=== PATIENT | male | born 1945 | race Hispanic/Latino ===

== ENCOUNTER 2019-04-27 07:15 | Inpatient (IN) | payer MEDICARE, OTHER ==
[2019-04-27] MEDS ORDERED: ZOFRAN ONE (07:36)
[2019-04-27] MEDS ORDERED: ASPIRIN PO ONE (07:38)
[2019-04-27] MEDS ORDERED: ATIVAN IV ONE (07:50)
[2019-04-27] MEDS ORDERED: BABY ASPIRIN PO ONE (08:07)
[2019-04-27] MEDS ORDERED: ZOFRAN IV ONE (08:07)
[2019-04-27] MEDS ORDERED: BABY ASPIRIN ONE (08:08)
--- NOTE | 2019-04-27 08:23 | XRay Report ---
AP CHEST: HISTORY: chest pain AP view of the chest demonstrates a normal mediastinal and cardiac contour with clear lungs and normal bony and soft tissue structures. Right shoulder arthroplasty changes are noted. IMPRESSION: Unremarkable AP chest.
[2019-04-27 08:42] LABS: INR 1.17 (0.87-1.13)
[2019-04-27 08:43] LABS: Amphetamine Screen,Urine PRESUMPTIVE NEGATIVE; Benzodiazepines Screen,Urine PRESUMPTIVE NEGATIVE; Cannabinoid Screen,Urine PRESUMPTIVE NEGATIVE; Cocaine Screen,Urine PRESUMPTIVE NEGATIVE; Methadone Screen,Urine PRESUMPTIVE NEGATIVE; Opiate Screen,Urine PRESUMPTIVE NEGATIVE
[2019-04-27 08:43] LABS: Partial Thromboplastin Time 24.1 Sec. (24.2-36.6)
[2019-04-27 08:49] LABS: Basophils # (Auto) 0.1 K/mm3 (0.0-0.1); Eosinophils # (Auto) 0.1 K/mm3 (0.0-0.4); Eosinophils % (Auto) 0.9 % (0.0-4.3); Hemoglobin 13.3 gm/dl (11.8-15.2); Lymphocytes # (Auto) 0.9 K/mm3 (1.2-5.4); Lymphocytes % (Auto) 14.8 % (13.4-35.0); Mean Corpuscular HGB Conc 35 % (32-34); Mean Corpuscular Volume 102 fl (84-94); Monocytes # (Auto) 0.5 K/mm3 (0.0-0.8); Monocytes % (Auto) 8.9 % (0.0-7.3); Platelet Count 110 K/mm3 (140-440); Red Blood Count 3.74 M/mm3 (3.65-5.03)
[2019-04-27 08:52] LABS: Creatine Kinase MB 8.3 ng/mL (0.0-4.0)
[2019-04-27 08:55] LABS: Alanine Aminotransferase 13 units/L (7-56); Albumin 3.7 g/dL (3.9-5); BUN/Creatinine Ratio 10; Bilirubin,Direct 0.3 mg/dL (0-0.2); Blood Urea Nitrogen 8 mg/dL (9-20); Hemolysis Index 8
[2019-04-27] MEDS ORDERED: TYLENOL PO PRN (09:08)
[2019-04-27] MEDS ORDERED: ATIVAN IV PRN (09:08)
[2019-04-27] MEDS ORDERED: ZOFRAN IV PRN (09:08)
[2019-04-27] MEDS ORDERED: SODIUM CHLORIDE FLUSH SYRINGE 10 ML IV PRN (09:08)
--- NOTE | 2019-04-27 09:21 | History and Physical Report ---
History of Present Illness Date of examination: 04/27/19 Chief complaint: Chest pain History of present illness: Mr. Garrett ibarra, is a 73-year-old male with history of hypertension and a lcohol abuse, was brought in by EMS with complaints of chest pain. Patient is resting, easily aroused but poor historian and mildly lethargic. He states he has been drinking since yesterday afternoon and throughout the night, and this morning started having left-sided chest pain. He is unable to describe the nature of the chest pain in spite of direct questions. He states that pain is localized, he denies any associated symptoms including nausea or sweating palpitations or dizziness or loss of consciousness. He is in mild withdrawal with mild tremors of his outstretched hands and patient is being admitted for further management and evaluation of his chest pain and possible potential alco hol withdrawal Past History Past Medical History: hypertension Past Surgical History: No surgical history Social history: , lives with family, smoking, alcohol abuse Family history: hypertension (father) Medications and Allergies Allergies Allergy/AdvReac Type Severity Reaction Status Date / Time No Known Allergies Allergy Unverified 12/03/13 04:03 Home Medications Medication Instructions Recorded Confirmed Last Taken Type No Known Home Medications [No 12/03/13 12/03/13 Unknown History Reported Home Medications] Active Meds: Active Medications Acetaminophen (Tylenol) 650 mg PO Q4H PRN PRN Reason: Pain MILD(1-3)/Fever >100.5/MAYES Heparin Sodium (Porcine) (Heparin) 5,000 unit SUB-Q Q8HR JESS Magnesium Sulfate 1 gm/ Sodium (Chloride) 52 mls @ 52 mls/hr IV ONCE ONE Stop: 04/27/19 10:01 Thiamine HCl 100 mg/ Folic Acid 1 mg/ Multivitamins/Minerals 10 ml/ Sodium Chloride 1,011.2 mls @ 250 mls/hr IV ONCE ONE Stop: 04/27/19 13:06 Sodium Chloride (Nacl 0.9% 1000 Ml) 1,000 mls @ 100 mls/hr IV DIRECT JESS Lorazepam (Ativan) 1 mg IV Q1H PRN PRN Reason: CIWA-Ar 8-15 Ondansetron HCl (Zofran) 4 mg IV Q8H PRN PRN Reason: Nausea And Vomiting Pantoprazole Sodium (Protonix) 40 mg PO DAILY JESS Potassium Chloride (K-Dur) 40 meq PO ONCE ONE Stop: 04/27/19 09:02 Sodium Chloride (Sodium Chloride Flush Syringe 10 Ml) 10 ml IV BID JESS Sodium Chloride (Sodium Chloride Flush Syringe 10 Ml) 10 ml IV PRN PRN PRN Reason: LINE FLUSH Review of Systems Constitutional: lethargy, no weight loss, no fatigue, no chronic pain Ears, nose, mouth and throat: no ear pain, no nasal congestion, no sore throat, no headache, no vertigo Cardiovascular: chest pain (as stated above in the history of present illness), high blood pressure, no palpitations, no syncope, no lightheadedness, no shortness of breath Respiratory: no cough, no shortness of breath, no wheezing Gastrointestinal: no abdominal pain, no nausea, no diarrhea, no constipation, no melena Genitourinary Male: no dysuria, no hematuria, no flank pain, no urinary frequency, no urinary hesitancy Rectal: no pain Musculoskeletal: no neck pain Integumentary: no rash Neurological: no head injury, no seizures Psychiatric: no anxiety, no depression Endocrine: no excessive thirst, no polydipsia, no polyuria Exam - Constitutional Vitals: Temp Pulse Resp BP Pulse Ox 98.4 F 109 H 20 125/71 99 04/27/19 07:57 04/27/19 07:57 04/27/19 07:57 04/27/19 07:57 04/27/19 07:57 General appearance: Present: no acute distress - EENT Eyes: Present: PERRL, EOM intact ENT: hearing intact, clear oral mucosa - Neck Neck: Present: supple, normal ROM. Absent: masses or JVD - Respiratory Respiratory effort: normal Respiratory: bilateral: CTA - Cardiovascular Rhythm: regular Heart Sounds: Present: S1 & S2 - Extremities Extremities: No edema - Abdominal General gastrointestinal: Present: soft, non-tender. Absent: hepatomegaly, splenomegaly Male genitourinary: Present: deferred - Rectal Rectal Exam: deferred - Integumentary Integumentary: Present: clear - Musculoskeletal Musculoskeletal: strength equal bilaterally - Psychiatric Psychiatric: appropriate mood/affect - Neurologic Neurologic: CNII-XII intact, no focal deficits Results - Labs CBC & Chem 7: 04/27/19 08:15 04/27/19 08:15 Labs: Abnormal lab results 04/27/19 04/27/19 04/27/19 Range/Units 08:15 08:15 08:15 MCV 102 H (84-94) fl MCH 36 H (28-32) pg MCHC 35 H (32-34) % RDW 13.0 L (13.2-15.2) % Plt Count 110 L (140-440) K/mm3 [place] % (Auto) 8.9 H (0.0-7.3) % Lymph # 0.9 L (1.2-5.4) K/mm3 Seg Neutrophils % 74.4 H (40.0-70.0) % PT 15.6 H (12.2-14.9) Sec. INR 1.17 H (0.87-1.13) APTT 24.1 L (24.2-36.6) Sec. Potassium 3.3 L (3.6-5.0) mmol/L Carbon Dioxide 20 L (22-30) mmol/L BUN 8 L (9-20) mg/dL Glucose 126 H (75-100) mg/dL Calcium 8.0 L (8.4-10.2) mg/dL Magnesium 1.10 L (1.7-2.3) mg/dL Direct Bilirubin 0.3 H (0-0.2) mg/dL CK-MB (CK-2) 8.3 H (0.0-4.0) ng/mL CK-MB (CK-2) Rel Index 5.8 H (0-4) Total Protein 6.1 L (6.3-8.2) g/dL Albumin 3.7 L (3.9-5) g/dL Assessment and Plan - Patient Problems (1) Chest pain at rest Current Visit: Yes Status: Acute Plan to address problem: Appears atypical, EKG reviewed, sinus tachycardia with right bundle branch block and left anterior fascicular block Troponin was set in the normal range, serial troponin levels ordered Cardiology consult Telemetry Empiric PPI (2) HTN (hypertension) Current Visit: Yes Status: Acute Qualifiers: Hypertension type: essential hypertension Qualified Code(s): I10 - Essential (primary) hypertension Plan to address problem: Patient is normotensive at this time There is no listing of medications Will monitor for now Hydralazine when necessary (3) Hypokalemia Current Visit: Yes Status: Acute Plan to address problem: Potassium supplements ordered Monitor electrolytes (4) Hypomagnesemia Current Visit: Yes Status: Acute Plan to address problem: IV magnesium supplements ordered Recheck medication level in a.m. (5) Alcohol abuse Current Visit: Yes Status: Chronic Plan to address problem: We will start the patient on CIWA protocol with IV lorazepam We will also start the patient on banana bag once daily IV fluids with normal saline (6) Thrombocytopenia Current Visit: Yes Status: Acute Plan to address problem: Most likely EtOH induced bone marrow suppression We will monitor We will continue heparin DVT prophylaxis but will stop if it's dropping further (7) Macrocytosis without anemia Current Visit: Yes Status: Chronic Plan to address problem: Most likely secondary to EtOH abuse That is no overt bleed Will start on Thiamine and folic acid supplements
[2019-04-27] MEDS ORDERED: K-DUR PO ONE ×2 (11:00→16:00)
[2019-04-27] MEDS ORDERED: VITAMIN B-1 100 MG, FOLVITE 1 MG, INFUVITE 10 ML in NACL 0.9% 1000 ML 1,000 ML IV ONE (11:04)
[2019-04-27] MEDS: SODIUM CHLORIDE FLUSH SYRINGE 10 ML IV SCH ×2 (12:00→21:56)
[2019-04-27] MEDS ORDERED: MAGNESIUM SULFATE 1 GM in NACL 0.9% 50 ML IV ONE (12:02)
--- NOTE | 2019-04-27 12:21 | Emergency Department Report ---
ED Chest Pain HPI - General Chief Complaint: Chest Pain Stated Complaint: CHEST PAIN Time Seen by Provider: 04/27/19 07:30 Source: EMS Mode of arrival: Stretcher Limitations: No Limitations - History of Present Illness Initial Comments: 73-year-old male presents for evaluation of chest pain. I think it is either substernal or left-sided. I don't think it is radiating. I think the patient is denying shortness of breath. I am describing the substantial difficulties in obtaining specific history from this gentleman. He is quite tremulous/shaky and possibly encephalopathic. He does drink alcohol. He states that he was evaluated at [facility] I believe one week ago for chest pain. I cannot tell from his account whether he was discharged or admitted. I am presuming that he was discharged. At the time of my encounter unable to obtain much specific data about this patient's history of present illness. He sustains to be stating that his chest pain became worse last night but that if he has had it for over a week. MD Complaint: chest pain -: week(s) Onset: during rest Pain Location: substernal, left chest Pain Radiation: none Quality: other (patient will not describe) Consistency: constant Improves With: nothing Worsens With: nothing re: denies: vomting, diaphoresis, dyspnea Other Symptoms: cough Treatments Prior to Arrival: none (arrived via EMS. Was not given nitroglycerin) - Related Data Home Medications Medication Instructions Recorded Confirmed Last Taken No Known Home Medications [No 12/03/13 12/03/13 Unknown Reported Home Medications] Allergies Allergy/AdvReac Type Severity Reaction Status Date / Time No Known Allergies Allergy Unverified 12/03/13 04:03 Heart Score - HEART Score History: Moderately suspicious EKG: Non-specific Age: > 65 Risk factors: > 3 risk factors or hx of atherosclerotic disease Troponin: 1-3x normal limit HEART Score: 7 - Critical Actions Critical Actions: >7 pts:50-65% risk of adverse cardiac event. Early invasive measures ED Review of Systems ROS: Stated complaint: CHEST PAIN Other details as noted in HPI Comment: Unobtainable due to pts medical conditions ED Past Medical Hx - Past Medical History Hx Hypertension: Yes Hx Arthritis: Yes Hx Psychiatric Treatment: No Additional medical history: Daily Alcohol Consumption - Surgical History Additional Surgical History: total knee replacement - Social History Smoking Status: Current Every Day Smoker Substance Use Type: Alcohol - Medications Home Medications: Home Medications Medication Instructions Recorded Confirmed Last Taken Type No Known Home Medications [No 12/03/13 12/03/13 Unknown History Reported Home Medications] ED Physical Exam - General Limitations: Altered Mental Status General appearance: alert, anxious - Head Head exam: Present: atraumatic, normocephalic - Eye Eye exam: Present: normal appearance, PERRL, EOMI. Absent: scleral icterus - ENT ENT exam: Present: mucous membranes moist - Neck Neck exam: Present: normal inspection. Absent: tenderness, meningismus - Respiratory Respiratory exam: Present: normal lung sounds bilaterally. Absent: respiratory distress - Cardiovascular Cardiovascular Exam: Present: regular rate, normal rhythm. Absent: systolic murmur, diastolic murmur, rubs, gallop - GI/Abdominal GI/Abdominal exam: Present: soft, normal bowel sounds. Absent: distended, tenderness, guarding, rebound, rigid - Rectal Rectal exam: Present: deferred - Extremities Exam Extremities exam: Present: normal inspection. Absent: pedal edema, joint swelling, calf tenderness - Back Exam Back exam: Present: normal inspection - Neurological Exam Neurological exam: Present: alert, altered, CN II-XII intact (as testable), motor sensory deficit - Psychiatric Psychiatric exam: Present: agitated, anxious - Skin Skin exam: Present: warm, dry, intact, normal color. Absent: rash ED Course Vital Signs 04/27/19 04/27/19 04/27/19 07:44 07:51 07:57 Temperature 98.4 F Pulse Rate 118 H 109 H Respiratory 20 20 Rate Blood Pressure 125/71 Blood Pressure 125/71 [Left] O2 Sat by Pulse 98 97 99 Oximetry 04/27/19 04/27/19 04/27/19 08:00 08:11 08:21 Temperature Pulse Rate 100 H 92 H 92 H Respiratory 22 16 17 Rate Blood Pressure 141/70 141/70 131/72 Blood Pressure [Left] O2 Sat by Pulse 97 98 98 Oximetry 04/27/19 04/27/19 04/27/19 08:30 08:41 08:51 Temperature Pulse Rate 85 87 88 Respiratory 16 13 14 Rate Blood Pressure 137/68 137/68 131/76 Blood Pressure [Left] O2 Sat by Pulse 100 98 97 Oximetry 04/27/19 04/27/19 04/27/19 09:00 09:11 09:21 Temperature Pulse Rate 77 73 77 Respiratory 10 L 14 20 Rate Blood Pressure 132/65 132/65 132/64 Blood Pressure [Left] O2 Sat by Pulse 99 99 96 Oximetry 04/27/19 04/27/19 04/27/19 09:30 09:41 09:51 Temperature Pulse Rate 72 71 74 Respiratory 15 13 14 Rate Blood Pressure 144/62 140/62 Blood Pressure [Left] O2 Sat by Pulse 99 97 98 Oximetry 04/27/19 04/27/19 04/27/19 10:01 10:11 10:21 Temperature Pulse Rate 68 71 62 Respiratory 14 12 16 Rate Blood Pressure 131/62 131/62 130/59 Blood Pressure [Left] O2 Sat by Pulse 99 99 98 Oximetry 04/27/19 04/27/19 04/27/19 10:31 10:41 10:51 Temperature Pulse Rate 66 73 77 Respiratory 10 L 18 14 Rate Blood Pressure 134/55 134/55 126/56 Blood Pressure [Left] O2 Sat by Pulse 98 99 99 Oximetry 04/27/19 04/27/19 04/27/19 11:00 11:11 11:21 Temperature Pulse Rate 63 65 70 Respiratory 15 15 13 Rate Blood Pressure 136/56 134/55 130/58 Blood Pressure [Left] O2 Sat by Pulse 100 100 99 Oximetry 04/27/19 04/27/19 04/27/19 11:30 11:41 11:51 Temperature Pulse Rate 67 77 66 Respiratory 15 14 15 Rate Blood Pressure 135/58 126/56 127/59 Blood Pressure [Left] O2 Sat by Pulse 99 98 99 Oximetry 04/27/19 04/27/19 04/27/19 12:00 12:01 12:08 Temperature 98.4 F Pulse Rate 64 78 Respiratory 14 20 Rate Blood Pressure 134/60 134/60 Blood Pressure [Left] O2 Sat by Pulse 98 Oximetry 04/27/19 12:15 Temperature Pulse Rate 68 Respiratory 15 Rate Blood Pressure 134/60 Blood Pressure [Left] O2 Sat by Pulse 99 Oximetry - Reevaluation(s) Reevaluation #1: Patient was given Ativan. He was judged to be a bit encephalopathic likely secondary to alcohol withdrawal. He was admitted by the hospitalist further care and evaluation. I am going to get a CT of his head as well. 04/27/19 12:25 JOSE score - Jose Score Age > 65: (0) No Aspirin use within the Past 7 Days: (0) No 3 or more CAD Risk Factors: (1) Yes 2 or more Angina events in past 24 hrs: (0) No Known CAD with more than 50% Stenosis: (0) No Elevated Cardiac Markers: (0) No ST Deviation Greater than 0.5mm: (1) Yes JOSE Score: 2 ED Medical Decision Making - Lab Data Result diagrams: 04/27/19 08:15 04/27/19 08:15 Laboratory Results - last 24 hr 04/27/19 04/27/19 04/27/19 08:15 08:15 08:15 WBC 5.9 RBC 3.74 Hgb 13.3 Hct 38.0 MCV 102 H MCH 36 H MCHC 35 H RDW 13.0 L Plt Count 110 L Lymph % (Auto) 14.8 [place] % (Auto) 8.9 H Eos % (Auto) 0.9 Baso % (Auto) 1.0 Lymph # 0.9 L [place] # 0.5 Eos # 0.1 Baso # 0.1 Seg Neutrophils % 74.4 H Seg Neutrophils # 4.4 PT 15.6 H INR 1.17 H APTT 24.1 L Sodium 141 Potassium 3.3 L Chloride 103.6 Carbon Dioxide 20 L Anion Gap 21 BUN 8 L Creatinine 0.8 Estimated GFR > 60 BUN/Creatinine Ratio 10 Glucose 126 H Calcium 8.0 L Magnesium 1.10 L Total Bilirubin 1.10 Direct Bilirubin 0.3 H Indirect Bilirubin 0.8 AST 20 ALT 13 Alkaline Phosphatase 43 Ammonia Total Creatine Kinase 141 CK-MB (CK-2) 8.3 H CK-MB (CK-2) Rel Index 5.8 H Troponin T 0.018 NT-Pro-B Natriuret Pep 264.6 Total Protein 6.1 L Albumin 3.7 L Albumin/Globulin Ratio 1.5 Plasma/Serum Alcohol Blood Type Antibody Screen 04/27/19 04/27/19 04/27/19 08:15 08:15 08:15 WBC RBC Hgb Hct MCV MCH MCHC RDW Plt Count Lymph % (Auto) [place] % (Auto) Eos % (Auto) Baso % (Auto) Lymph # [place] # Eos # Baso # Seg Neutrophils % Seg Neutrophils # PT INR APTT Sodium Potassium Chloride Carbon Dioxide Anion Gap BUN Creatinine Estimated GFR BUN/Creatinine Ratio Glucose Calcium Magnesium Total Bilirubin Direct Bilirubin Indirect Bilirubin AST ALT Alkaline Phosphatase Ammonia 38.0 Total Creatine Kinase CK-MB (CK-2) CK-MB (CK-2) Rel Index Troponin T NT-Pro-B Natriuret Pep Total Protein Albumin Albumin/Globulin Ratio Plasma/Serum Alcohol < 0.01 Blood Type A POSITIVE Antibody Screen Negative - EKG Data EKG shows normal: sinus rhythm (multiple PACs/multifocal atrial tachycardia), axis (left axis/LAFB,), intervals, QRS complexes (right bundle-branch block), ST-T waves Rate: tachycardia - EKG Data Interpretation: nonspecific ST-T wave chad Critical care attestation.: If time is entered above; I have spent that time in minutes in the direct care of this critically ill patient, excluding procedure time. ED Disposition Clinical Impression: Chest pain at rest, Encephalopathy acute, Bifascicular block Alcohol withdrawal Qualifiers: Complication of substance-induced condition: with delirium Qualified Code(s): F10.231 - Alcohol dependence with withdrawal delirium Disposition: OP ADMIT IP TO THIS HOSP Is pt being admited?: Yes Does the pt Need Aspirin: Yes Time of Disposition: 12:31
--- NOTE | 2019-04-27 12:31 | Consultation ---
History of Present Illness Consult date: 04/27/19 Requesting physician: SHON PRITCHARD Consult reason: chest pain History of present illness: The pt is a 73-year-old male with a past medical history of HTN, SVT, ETOH abuse, thrombocytopenia, prostate CA, tobacco use, ? gastric ulcers per his at bedside. Pt has been seen once in our office by Dr. Plascencia. He presented with c/o chest pain for the past 2 weeks. He describes his chest pain as an intermittent substernal pain which is aggravated by ETOH intake. Pt reports several bouts of n/v over the past several days. Pt denies any SOB, palpitations, diaphoresis, dizziness or syncope. On evaluation, pt is noted to be quite tremulous/shaky and possibly encephalopathic. He does drink alcohol. Of note, pt was admitted to [facility] in 08/2017 for cp. He was noted to have SVT at that time. He underwent lexiscan MPI stress test on 09/02/2017 which showed small inferior defect with mild reversibility, EF 72%. Echo done 09/01/2017 showed normal LV size and function, RA mod dilated, mild anterior MV prolapse, trace TR. Past History Past Medical History: cancer (prostate), hypertension, other (svt) Past Surgical History: No surgical history Social history: , lives with family, smoking, alcohol abuse Family history: hypertension (father) Medications and Allergies Allergies Allergy/AdvReac Type Severity Reaction Status Date / Time No Known Allergies Allergy Unverified 12/03/13 04:03 Home Medications Medication Instructions Recorded Confirmed Last Taken Type No Known Home Medications [No 12/03/13 12/03/13 Unknown History Reported Home Medications] Active Meds: Active Medications Acetaminophen (Tylenol) 650 mg PO Q4H PRN PRN Reason: Pain MILD(1-3)/Fever >100.5/MAYES Heparin Sodium (Porcine) (Heparin) 5,000 unit SUB-Q Q8HR JESS Magnesium Sulfate 1 gm/ Sodium (Chloride) 52 mls @ 52 mls/hr IV ONCE ONE Stop: 04/27/19 13:01 Thiamine HCl 100 mg/ Folic Acid 1 mg/ Multivitamins/Minerals 10 ml/ Sodium Chloride 1,011.2 mls @ 250 mls/hr IV ONCE ONE Stop: 04/27/19 15:06 Sodium Chloride (Nacl 0.9% 1000 Ml) 1,000 mls @ 100 mls/hr IV DIRECT JESS Lorazepam (Ativan) 1 mg IV Q1H PRN PRN Reason: CIWA-Ar 8-15 Ondansetron HCl (Zofran) 4 mg IV Q8H PRN PRN Reason: Nausea And Vomiting Pantoprazole Sodium (Protonix) 40 mg PO DAILY [facility] Sodium Chloride (Sodium Chloride Flush Syringe 10 Ml) 10 ml IV BID [facility] Last Admin: 04/27/19 12:00 Dose: 10 ml Documented by: Sodium Chloride (Sodium Chloride Flush Syringe 10 Ml) 10 ml IV PRN PRN PRN Reason: LINE FLUSH Thiamine HCl (Vitamin B-1) 100 mg PO DAILY [facility] Review of Systems Constitutional: no fever, no chills, no sweats Ears, nose, mouth and throat: no ear pain, no nose pain, no sinus pressure, no sinus pain Cardiovascular: chest pain, no palpitations, no rapid/irregular heart beat, no edema, no syncope, no lightheadedness, no shortness of breath, no dyspnea on exertion, no high blood pressure, no leg edema Respiratory: no cough, no shortness of breath, no dyspnea on exertion, no con gestion, no wheezing, no pain on inspiration Gastrointestinal: nausea, vomiting, no abdominal pain, no diarrhea, no constipation, no change in bowel habits Genitourinary Male: no dysuria, no hematuria, no flank pain, no discharge, no urinary frequency, no urinary hesitancy Musculoskeletal: no neck stiffness, no neck pain, no shooting arm pain, no arm numbness/tingling, no low back pain, no shooting leg pain Integumentary: no rash, no pruritis, no redness, no sores, no wounds Neurological: no head injury, no paralysis, no weakness, no parathesias, no numbness, no tingling, no seizures, no syncope Psychiatric: no anxiety Endocrine: no cold intolerance, no heat intolerance Hematologic/Lymphatic: no easy bruising, no easy bleeding Allergic/Immunologic: no urticaria, no wheezing Physical Examination Vital Signs Pulse Ox 98 04/27/19 07:44 General appearance: no acute distress HEENT: Positive: PERRL, Normocephaly, Mucus Membranes Moist Neck: Positive: neck supple, trachea midline Cardiac: Positive: Reg Rate and Rhythm, S1/S2 Lungs: Positive: Decreased Breath Sounds Neuro: Positive: Grossly Intact Abdomen: Positive: Soft. Negative: Tender Skin: Negative: Rash, Wound Musculoskeletal: No Pain Extremities: Absent: edema Results 04/27/19 08:15 04/27/19 08:15 Cardiac Enzymes 04/27/19 Range/Units 08:15 AST 20 (5-40) units/L CK-MB (CK-2) 8.3 H (0.0-4.0) ng/mL Coagulation 04/27/19 Range/Units 08:15 PT 15.6 H (12.2-14.9) Sec. INR 1.17 H (0.87-1.13) APTT 24.1 L (24.2-36.6) Sec. CBC 04/27/19 Range/Units 08:15 WBC 5.9 (4.5-11.0) K/mm3 RBC 3.74 (3.65-5.03) M/mm3 Hgb 13.3 (11.8-15.2) gm/dl Hct 38.0 (35.5-45.6) % Plt Count 110 L (140-440) K/mm3 Lymph # 0.9 L (1.2-5.4) K/mm3 [place] # 0.5 (0.0-0.8) K/mm3 Eos # 0.1 (0.0-0.4) K/mm3 Baso # 0.1 (0.0-0.1) K/mm3 Comprehensive Metabolic Panel 04/27/19 Range/Units 08:15 Sodium 141 (137-145) mmol/L Potassium 3.3 L (3.6-5.0) mmol/L Chloride 103.6 (98-107) mmol/L Carbon Dioxide 20 L (22-30) mmol/L BUN 8 L (9-20) mg/dL Creatinine 0.8 (0.8-1.5) mg/dL Glucose 126 H (75-100) mg/dL Calcium 8.0 L (8.4-10.2) mg/dL Direct Bilirubin 0.3 H (0-0.2) mg/dL Indirect Bilirubin 0.8 mg/dL AST 20 (5-40) units/L ALT 13 (7-56) units/L Alkaline Phosphatase 43 (35-129) units/L Total Protein 6.1 L (6.3-8.2) g/dL Albumin 3.7 L (3.9-5) g/dL - Imaging and Cardiology Echo: report reviewed (09/01/2017 showed normal LVsize and function, RA mod dilated, mild anterior MV prolapse, trace TR. ) EKG: report reviewed, image reviewed EKG interpretations - Telemetry EKG Rhythm: Sinus Rhythm - EKG Sinus rhythms and dysrhythmias: sinus rhythm AV and intraventricular conduction: right bundle branch block Assessment and Plan Pt was admitted to [facility] in 08/2017 for cp. He was noted to have SVT at that time. He underwent lexiscan MPI stress test on 09/02/2017 which showed small inferior defect with mild reversibility, EF 72%. Echo done 09/01/2017 showed normal LV size and function, RA mod dilated, mild anterior MV prolapse, trace TR. Pt admitted now with c/o chest pain and suspected ETOH withdrawal. On CIWA protocol per primary. ECG with no acute ischemic changes, troponin minimally elevated x 1. F/u echo, trend Wendy and plan for lexiscan MPI stress test in AM. NPO after MN. Resume home lopressor. Replete lytes and repeat BMP and Mg in AM. Monitor on telemetry. The patient has been seen in conjunction with Dr. Butler who agrees with the assessment and plan of care. - Patient Problems (1) Chest pain Current Visit: Yes Status: Acute (2) Alcohol abuse Current Visit: Yes Status: Chronic (3) Alcohol withdrawal Current Visit: Yes Status: Suspected (4) Hypokalemia Current Visit: Yes Status: Acute (5) Hypomagnesemia Current Visit: Yes Status: Acute (6) Thrombocytopenia Current Visit: Yes Status: Chronic (7) HTN (hypertension) Current Visit: Yes Status: Chronic Qualifiers: Hypertension type: essential hypertension Qualified Code(s): I10 - Essential (primary) hypertension (8) History of supraventricular tachycardia Current Visit: Yes Status: Chronic (9) RBBB Current Visit: Yes Status: Chronic (10) History of prostate cancer Current Visit: Yes Status: Chronic
[2019-04-27] MEDS: VITAMIN B-1 PO SCH (14:12)
[2019-04-27] MEDS: PROTONIX PO SCH (14:12)
[2019-04-27] MEDS: NACL 0.9% 1000 ML 1,000 ML IV SCH (14:15)
[2019-04-27] MEDS: HEPARIN SUB-Q SCH ×2 (14:23→21:56)
--- NOTE | 2019-04-27 14:58 | Cat Scan Report ---
CT HEAD WITHOUT CONTRAST: HISTORY: Altered mental status. TECHNIQUE: Sequential CT images without contrast. FINDINGS: Images obtained show bilateral prominence of the sulci and ventricles. There are no abnormal intra- or extra-axial blood or fluid collections. There are no focal masses or evidence of mass effect. The [place] white matter differentiation appears within normal limits. Regions of periventricular decreased attenuation are consistent with microangiopathic ischemic disease. The posterior fossa structures including the fourth ventricle, cerebellum, and brainstem appear normal. IMPRESSION: Evidence of atrophy and microangiopathic ischemic disease. No acute intracranial process noted.
[2019-04-27] MEDS ORDERED: MAGNESIUM SULFATE 3 GM in NACL 0.9% 100 ML IV ONE (15:00)
[2019-04-27] MEDS: LOPRESSOR PO SCH (21:55)
[2019-04-28] MEDS: HEPARIN SUB-Q SCH ×3 (05:09→21:08)
[2019-04-28] MEDS: NACL 0.9% 1000 ML 1,000 ML IV SCH (05:10)
[2019-04-28 06:09] LABS: Basophils % (Auto) 1.1 % (0.0-1.8); Eosinophils # (Auto) 0.1 K/mm3 (0.0-0.4); Eosinophils % (Auto) 2.3 % (0.0-4.3); Hematocrit 35.5 % (35.5-45.6); Hemoglobin 12.5 gm/dl (11.8-15.2); Lymphocytes # (Auto) 0.9 K/mm3 (1.2-5.4); Mean Corpuscular HGB Conc 35 % (32-34); Mean Corpuscular Volume 102 fl (84-94); Monocytes # (Auto) 0.3 K/mm3 (0.0-0.8); Monocytes % (Auto) 7.9 % (0.0-7.3); Red Blood Count 3.46 M/mm3 (3.65-5.03)
[2019-04-28 06:21] LABS: BUN/Creatinine Ratio 7; Blood Urea Nitrogen 4 mg/dL (9-20); Calcium 7.6 mg/dL (8.4-10.2); Hemolysis Index 9
[2019-04-28 06:36] LABS: Platelet Count 92 K/mm3 (140-440)
[2019-04-28] MEDS ORDERED: LEXISCAN IV ONE ×2 (08:06→08:07)
[2019-04-28] MEDS: LOPRESSOR PO SCH ×2 (11:29→21:08)
[2019-04-28] MEDS: SODIUM CHLORIDE FLUSH SYRINGE 10 ML IV SCH ×2 (11:30→21:10)
[2019-04-28] MEDS: VITAMIN B-1 PO SCH (11:30)
[2019-04-28] MEDS: PROTONIX PO SCH (11:30)
--- NOTE | 2019-04-28 11:30 | Treadmill Report ---
NUCLEAR MYOCARDIAL PERFUSION IMAGING REPORT Myocardial perfusion imaging was performed after injecting the Myoview. One day protocol was followed with resting images, followed by post-stress images and post-stress gated images were obtained. This showed very small mild fixed defect in the inferior wall, which is more or less noted in the resting images, most likely this is artifactual. Overall, perfusion was found to be normal with no significant reversible defects. Left ventricular size was found to be normal with normal contractility and wall thickening. The ejection fraction was calculated to be 61%. Transient ischemic dilation ratio was found to be 1.0. FINAL IMPRESSION: 1. Normal perfusion images with no evidence of ischemia. 2. Normal left ventricular systolic function. 3. This was found to be prognostically low-risk study. JOB# [id number] RODERICK/OSIEL
--- NOTE | 2019-04-28 13:22 | Progress Note ---
Assessment and Plan s/p lexiscan MPI stress test this AM which was negative. Pt reports resolution of cp. pt noted to have NSVT overnight - cont lopressor and replete lytes PRN. nothing further to add from cardiac perspective at this time. will sign off. Recommend pt follow up in our office with Dr. Plascencia within 1-2 weeks of hospital discharge ([phone]). The patient has been seen in conjunction with Dr. Butler who agrees with the assessment and plan of care. - Patient Problems (1) Chest pain Current Visit: Yes Status: Resolved (2) Alcohol abuse Current Visit: Yes Status: Chronic (3) Alcohol withdrawal Current Visit: Yes Status: Suspected (4) Hypokalemia Current Visit: Yes Status: Acute (5) Hypomagnesemia Current Visit: Yes Status: Acute (6) Thrombocytopenia Current Visit: Yes Status: Chronic (7) HTN (hypertension) Current Visit: Yes Status: Chronic Qualifiers: Hypertension type: essential hypertension Qualified Code(s): I10 - Essential (primary) hypertension (8) History of supraventricular tachycardia Current Visit: Yes Status: Chronic (9) RBBB Current Visit: Yes Status: Chronic (10) History of prostate cancer Current Visit: Yes Status: Chronic Subjective Date of service: 04/28/19 Principal diagnosis: cp Interval history: pt for stress test, no current cardiac complaints. some NSVT noted on tele overnight. Objective Last Vital Signs Temp 98.3 F 04/28/19 05:31 Pulse 63 04/28/19 10:00 Resp 19 04/28/19 10:00 BP 134/68 04/28/19 08:52 Pulse Ox 98 04/28/19 10:00 - Physical Examination General: No Apparent Distress HEENT: Positive: PERRL, Normocephaly, Mucus Membranes Moist Neck: Positive: neck supple, trachea midline Cardiac: Positive: Reg Rate and Rhythm, S1/S2 Lungs: Positive: Decreased Breath Sounds Neuro: Positive: Grossly Intact Abdomen: Positive: Soft. Negative: Tender Skin: Negative: Rash, Wound Musculoskeletal: No Pain Extremities: Absent: edema - Labs and Meds CBC 04/28/19 Range/Units 04:25 WBC 4.3 L (4.5-11.0) K/mm3 RBC 3.46 L (3.65-5.03) M/mm3 Hgb 12.5 (11.8-15.2) gm/dl Hct 35.5 (35.5-45.6) % Plt Count 92 L (140-440) K/mm3 Lymph # 0.9 L (1.2-5.4) K/mm3 [place] # 0.3 (0.0-0.8) K/mm3 Eos # 0.1 (0.0-0.4) K/mm3 Baso # 0.0 (0.0-0.1) K/mm3 Comprehensive Metabolic Panel 04/28/19 Range/Units 04:25 Sodium 137 (137-145) mmol/L Potassium 3.5 L (3.6-5.0) mmol/L Chloride 101.0 (98-107) mmol/L Carbon Dioxide 23 (22-30) mmol/L BUN 4 L (9-20) mg/dL Creatinine 0.6 L (0.8-1.5) mg/dL Glucose 100 (75-100) mg/dL Calcium 7.6 L (8.4-10.2) mg/dL - Imaging and Cardiology EKG: report reviewed, image reviewed Echo: report reviewed (09/01/2017 showed normal LVsize and function, RA mod dilated, mild anterior MV prolapse, trace TR. ) - Telemetry EKG Rhythm: Sinus Rhythm - EKG Sinus rhythms and dysrhythmias: sinus rhythm AV and intraventricular conduction: right bundle branch block
--- NOTE | 2019-04-28 14:00 | Progress Note ---
Assessment and Plan (1) Chest pain at rest Current Visit: Yes Status: Acute Plan to address problem: Appears atypical, EKG reviewed, sinus tachycardia with right bundle branch block and left anterior fascicular block Lexiscan and Troponin normal.No ischemia (2) HTN (hypertension) Current Visit: Yes Status: Acute Qualifiers: Hypertension type: essential hypertension Qualified Code(s): I10 - Essential (primary) hypertension Plan to address problem: Patient is normotensive at this time There is no listing of medications Will monitor for now Hydralazine when necessary (3) Hypokalemia Current Visit: Yes Status: Acute Plan to address problem: Potassium supplements ordered Monitor electrolytes Supplemented (4) Hypomagnesemia Current Visit: Yes Status: Acute Plan to address problem: IV magnesium supplements ordered Recheck medication level in a.m. Supplemented again (5) Alcohol abuse Current Visit: Yes Status: Chronic Plan to address problem: We will start the patient on CIWA protocol with IV lorazepam We will also start the patient on banana bag once daily IV fluids with normal saline Going into DT's Cont CIWA protocol (6) Thrombocytopenia Current Visit: Yes Status: Acute Plan to address problem: Most likely EtOH induced bone marrow suppression We will monitor We will continue heparin DVT prophylaxis but will stop if it's dropping further (7) Macrocytosis without anemia Current Visit: Yes Status: Chronic Plan to address problem: Most likely secondary to EtOH abuse That is no overt bleed Will start on Thiamine and folic acid supplements (8)Hypocalcemia Supplemented Subjective Date of service: 04/28/19 Principal diagnosis: cp Interval history: Chest pain improved.Tremulouis and agitated.Trying to get out of the hospital.No fever or chills. Objective - Constitutional Vitals: Vital Signs - 12hr 04/28/19 04/28/19 04/28/19 02:00 05:31 08:15 Temperature 98.3 F Pulse Rate 64 68 Pulse Rate [ Apical] Pulse Rate [ Left Radial] Pulse Rate [ Right Radial] Respiratory 20 Rate Blood Pressure 127/58 150/61 O2 Sat by Pulse 95 Oximetry 04/28/19 04/28/19 04/28/19 08:20 08:43 08:44 Temperature Pulse Rate 60 Pulse Rate [ Apical] Pulse Rate [ Left Radial] Pulse Rate [ Right Radial] Respiratory Rate Blood Pressure 146/66 149/69 150/61 O2 Sat by Pulse Oximetry 04/28/19 04/28/19 04/28/19 08:45 08:47 08:48 Temperature Pulse Rate 80 72 Pulse Rate [ Apical] Pulse Rate [ Left Radial] Pulse Rate [ Right Radial] Respiratory Rate Blood Pressure 147/75 146/66 149/69 O2 Sat by Pulse Oximetry 04/28/19 04/28/19 04/28/19 08:49 08:50 08:51 Temperature Pulse Rate 79 80 67 Pulse Rate [ Apical] Pulse Rate [ Left Radial] Pulse Rate [ Right Radial] Respiratory Rate Blood Pressure 147/75 142/72 142/72 O2 Sat by Pulse Oximetry 04/28/19 04/28/19 08:52 10:00 Temperature Pulse Rate 63 Pulse Rate [ 63 Apical] Pulse Rate [ 63 Left Radial] Pulse Rate [ 63 Right Radial] Respiratory 19 Rate Blood Pressure 134/68 O2 Sat by Pulse 98 Oximetry General appearance: Present: no acute distress, well-nourished - EENT Eyes: PERRL, EOM intact ENT: hearing intact, clear oral mucosa Ears: bilateral: normal - Neck Neck: supple, normal ROM - Respiratory Respiratory effort: normal Respiratory: bilateral: CTA - Breasts Breasts: normal - Cardiovascular Heart rate: 88 Rhythm: regular Heart Sounds: Present: S1 & S2. Absent: gallop, rub Extremities: no ischemia, pulses intact, No edema, normal color, Full ROM - Gastrointestinal General gastrointestinal: Present: soft, non-tender, non-distended, normal bowel sounds - Genitourinary Male genitourinary: normal - Integumentary Integumentary: clear, warm, dry - Musculoskeletal Musculoskeletal: 1, strength equal bilaterally - Neurologic Neurologic: moves all extremities - Psychiatric Psychiatric: memory intact, appropriate mood/affect, intact judgment & insight - Labs CBC & Chem 7: 04/28/19 04:25 04/28/19 04:25 Labs: Abnormal lab results 04/28/19 04/28/19 04/28/19 Range/Units 04:25 04:25 04:25 WBC 4.3 L (4.5-11.0) K/mm3 RBC 3.46 L (3.65-5.03) M/mm3 MCV 102 H (84-94) fl MCH 36 H (28-32) pg MCHC 35 H (32-34) % RDW 13.0 L (13.2-15.2) % Plt Count 92 L (140-440) K/mm3 [place] % (Auto) 7.9 H (0.0-7.3) % Lymph # 0.9 L (1.2-5.4) K/mm3 Potassium 3.5 L (3.6-5.0) mmol/L BUN 4 L (9-20) mg/dL Creatinine 0.6 L (0.8-1.5) mg/dL Calcium 7.6 L (8.4-10.2) mg/dL Magnesium 1.60 L (1.7-2.3) mg/dL
[2019-04-28] MEDS ORDERED: MAGNESIUM SULFATE 2GM/50ML 2 GM/50 ML BAG IV ONE (14:23)
[2019-04-28] MEDS ORDERED: K-DUR PO ONE (14:24)
[2019-04-28] MEDS ORDERED: HALDOL IV PRN (17:46)
[2019-04-28] MEDS ORDERED: HALDOL IM PRN (20:39)
[2019-04-29] MEDS: HEPARIN SUB-Q SCH (05:27)
[2019-04-29] MEDS ORDERED: K-DUR PO ONE (05:40)
[2019-04-29] MEDS ORDERED: MAGNESIUM SULFATE 2GM/50ML 2 GM/50 ML BAG IV ONE (06:00)
[2019-04-29 07:44] LABS: Alanine Aminotransferase 11 units/L (7-56); Albumin 3.4 g/dL (3.9-5); BUN/Creatinine Ratio 4; Blood Urea Nitrogen 3 mg/dL (9-20); Calcium 8.6 mg/dL (8.4-10.2); Hemolysis Index 4
[2019-04-29 08:32] LABS: Basophils % (Auto) 1.2 % (0.0-1.8); Eosinophils # (Auto) 0.1 K/mm3 (0.0-0.4); Hematocrit 34.3 % (35.5-45.6); Hemoglobin 12.3 gm/dl (11.8-15.2); Lymphocytes # (Auto) 1.1 K/mm3 (1.2-5.4); Lymphocytes % (Auto) 26.2 % (13.4-35.0); Mean Corpuscular HGB Conc 36 % (32-34); Mean Corpuscular Volume 102 fl (84-94); Monocytes # (Auto) 0.4 K/mm3 (0.0-0.8); Monocytes % (Auto) 9.9 % (0.0-7.3); Platelet Count 90 K/mm3 (140-440); Red Blood Count 3.37 M/mm3 (3.65-5.03); Red Cell Distribution Width 12.9 % (13.2-15.2)
--- NOTE | 2019-04-29 09:37 | Discharge Summary ---
Providers - Providers Date of Admission: 04/27/19 09:08 Attending physician: MILAN MALLOY MD 04/27/19 09:07 Consult to Physician [CONS] Routine Comment: Consulting Provider: ADDY BARKER Physician Instructions: Reason For Exam: chest pain Primary care physician: [facility], Hospitalization Reason for admission: chest pain Condition: Stable Hospital course: Mr. Garrett ibarra, is a 73-year-old male with history of hypertension and alcohol abuse, was brought in by EMS with complaints of chest pain. Patient is resting, easily aroused but poor historian and mildly lethargic. He states he has been drinking since yesterday afternoon and throughout the night, and this morning started having left-sided chest pain. He is unable to describe the nature of the chest pain in spite of direct questions. He states that pain is localized, he denies any associated symptoms including nausea or sweating palpitations or dizziness or loss of consciousness. He is in mild withdrawal with mild tremors of his outstretched hands and patient is being admitted for further management and evaluation of his chest pain and possible potential alcohol withdrawal. Patient was seen by cardiology and underwent a stress test and cardiac cath with no ischemic lesion noted. I spoke to the extensively about the patient who states that the patient has been non complaint with follow ups, continues to drink etoh contrary to the patients statement that he quit a week ago, she also states that he was diagnosed with pepetic ulcer and was told to follow up at the [facility] but did not. Patient has been advised of this findings and my recommendation to enroll in AA or better still and inpatient detox program. Also the importance of follow up. He verablized understanding and knows this is vital for his health. 35 mins spent on counselling and coordination of care with family Discharge Diagnosis Chest pain at rest secondary costochondritis Acute diastolic CHF with preserved EF HTN (hypertension) Peptic Ulcer per history Hypokalemia Hypomagnesemia Alcohol abuse Thrombocytopenia Macrocytosis without anemia Hypocalcemia Disposition: DC/[place]-06 HOME [facility] Time spent for discharge: 35 mins Core Measure Documentation - Palliative Care Palliative Care/ Comfort Measures: Not Applicable - Core Measures Any of the following diagnoses?: none Exam - Constitutional Vitals: Temp Pulse Resp BP Pulse Ox 98.4 F 97 H 18 133/61 92 04/29/19 02:44 04/29/19 02:44 04/29/19 02:44 04/29/19 02:44 04/29/19 02:44 General appearance: Present: no acute distress, well-nourished - EENT Eyes: Present: PERRL, EOM intact ENT: hearing intact, clear oral mucosa - Neck Neck: Present: supple, normal ROM - Respiratory Respiratory effort: normal Respiratory: bilateral: CTA - Cardiovascular Rhythm: regular Heart Sounds: Present: S1 & S2. Absent: systolic murmur - Extremities Extremities: no ischemia, pulses intact, pulses symmetrical, No edema, Full ROM - Abdominal General gastrointestinal: Present: soft, non-tender, non-distended - Integumentary Integumentary: Present: clear, warm, dry - Musculoskeletal Musculoskeletal: strength equal bilaterally, generalized weakness - Psychiatric Psychiatric: appropriate mood/affect, intact judgment & insight, cooperative, other (memory failing) - Neurologic Neurologic: CNII-XII intact, other (ambulates with cane) Plan Activity: advance as tolerated, fall precautions Diet: low fat Special Instructions: record daily BP diary, other (must quit etoh) Additional Instructions: [facility] and also prior recommeded GI doctor Follow up with: TOM[facility] MD ALISHA [Primary Care Provider] - 7 Days GALO RIVERA MD [Staff Physician] - 7 Days Prescriptions: Folic Acid [Folvite] 1 mg PO QDAY #30 tablet Magnesium Oxide [Mag-Ox] 400 mg PO QDAY #20 tablet Multivitamin Tab [Multiple Vitamin TAB (Theragran)] 1 each PO QDAY #30 tablet Pantoprazole [Protonix TAB] 40 mg PO DAILY #30 tablet Thiamine [Vitamin B-1] 100 mg PO DAILY #30 tablet
[2019-04-29] MEDS ORDERED: MAG-OX PO SCH (10:00)
[2019-04-29] MEDS ORDERED: CALTRATE PLUS PO SCH (10:00)
[2019-04-29 10:33] VITALS: BP 123/60
[2019-04-29] MEDS: LOPRESSOR PO SCH (11:56)
[2019-04-29] MEDS: PROTONIX PO SCH (11:56)
[2019-04-29] MEDS: VITAMIN B-1 PO SCH (11:57)
[2019-04-29] MEDS: SODIUM CHLORIDE FLUSH SYRINGE 10 ML IV SCH (11:58)
== END 2019-04-29 14:15 | disposition home health service (06) | DRG 205 ==
LOC: ED 07:15 → 4A 09:08 → OBSVTOIN 09:08 → 2B-ACE 04-28 16:56
PROVIDERS: ADMIT Internal Medicine; ATTEND Internal Medicine
DX: M94.0 Chondrocostal junction syndrome [Tietze] (principal); I50.31 Acute diastolic (congestive) heart failure; G93.40 Encephalopathy, unspecified; I47.2 Ventricular tachycardia; I11.0 Hypertensive heart disease with heart failure; E87.6 Hypokalemia; D69.6 Thrombocytopenia, unspecified; F10.10 Alcohol abuse, uncomplicated; I45.10 Unspecified right bundle-branch block; I44.4 Left anterior fascicular block; E83.42 Hypomagnesemia; D75.89 Other specified diseases of blood and blood-forming organs; M19.90 Unspecified osteoarthritis, unspecified site; F17.210 Nicotine dependence, cigarettes, uncomplicated; I07.1 Rheumatic tricuspid insufficiency; E83.51 Hypocalcemia; Z87.11 Personal history of peptic ulcer disease; Z96.653 Presence of artificial knee joint, bilateral; Z85.46 Personal history of malignant neoplasm of prostate
CPT/HCPCS: 36415; 70450; 71045; 78452; 80048; 80053; 80076; 80307; 80320; 82140; 82550; 82553; 83735; 83880; 84484; 85025; 85610; 85730; 86850; 86900; 86901; 93005; 93010; 93017; 93306; 96374; 96375; G0378; A9502; G0480; J1630; J1644; J2060; J2405; J2785; J3411; J3475; J7030

== ENCOUNTER 2019-05-21 09:42 | Emergency (ER) | payer MEDICARE ==
[2019-05-21] MEDS ORDERED: ASPIRIN PO ONE (09:49)
[2019-05-21 10:17] LABS: Basophils # (Auto) 0.1 K/mm3 (0.0-0.1); Basophils % (Auto) 0.9 % (0.0-1.8); Eosinophils # (Auto) 0.1 K/mm3 (0.0-0.4); Hematocrit 41.1 % (35.5-45.6); Lymphocytes # (Auto) 1.3 K/mm3 (1.2-5.4); Lymphocytes % (Auto) 20.1 % (13.4-35.0); Mean Corpuscular HGB Conc 34 % (32-34); Mean Corpuscular Volume 102 fl (84-94); Monocytes # (Auto) 0.4 K/mm3 (0.0-0.8); Monocytes % (Auto) 6.3 % (0.0-7.3); Platelet Count 146 K/mm3 (140-440); Red Blood Count 4.02 M/mm3 (3.65-5.03); Red Cell Distribution Width 13.5 % (13.2-15.2)
[2019-05-21 10:39] LABS: BUN/Creatinine Ratio 6; Blood Urea Nitrogen 4 mg/dL (9-20); Calcium 8.9 mg/dL (8.4-10.2); Hemolysis Index 29
[2019-05-21 10:43] LABS: INR 1.02 (0.87-1.13)
[2019-05-21 10:44] LABS: Partial Thromboplastin Time 23.4 Sec. (24.2-36.6)
--- NOTE | 2019-05-21 10:44 | XRay Report ---
CHEST 1 VIEW 10:28 AM INDICATION / CLINICAL INFORMATION: Chest Pain. Back pain, body aches, generalized weakness and cold walking for 2 days. COMPARISON: 04/27/2019. FINDINGS: SUPPORT DEVICES: None. HEART / MEDIASTINUM: The heart size and pulmonary vasculature are normal. There is mild aortic tortuo sity without aneurysm. LUNGS / PLEURA: No significant pulmonary or pleural abnormality. No pneumothorax. 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 A righ t shoulder prosthesis is noted. There are moderate degenerative changes involving the left glenohumer al joint. IMPRESSION: No acute abnormality Signer Name: Jas Manzano MD Signed: 05/21/2019 10:40 AM Workstation Name: [id number]
--- NOTE | 2019-05-21 13:46 | Emergency Department Report ---
ED General Adult HPI - General Chief complaint: Chest Pain Stated complaint: CHEST/BACK PAIN/DIFFICULTY WALKING Time Seen by Provider: 05/21/19 13:38 Source: patient, family Mode of arrival: Wheelchair Limitations: Physical Limitation - History of Present Illness Initial comments: Patient is a 73-year-old male with past medical history of alcohol is some presents with altered walking and chest pain has been going on for last couple days. Patient has been having tremors been going on for last 2 days. His last drink was last night. Patient is nauseous and has some vomiting. He says chest pain is mild as 6 out 10 nothing makes it better and nothing makes it worse. - Related Data Home Medications Medication Instructions Recorded Confirmed Last Taken Aspirin EC 81 mg PO QDAY 04/27/19 04/27/19 Unknown Cetirizine HCl [Zyrtec 10mg tab] 20 mg PO BID 04/27/19 04/27/19 Unknown Clobetasol 0.05% [Temovate] 1 applicatio TP BID 04/27/19 04/27/19 Unknown Metoprolol [Lopressor TAB] 25 mg PO BID 04/27/19 04/27/19 Unknown Potassium Chloride [K-Dur] 40 meq PO BID 04/27/19 04/27/19 Unknown buPROPion SR [Wellbutrin SR] 150 mg PO BID 04/27/19 04/27/19 Unknown Previous Rx's Medication Instructions Recorded Last Taken Type Folic Acid [Folvite] 1 mg PO QDAY #30 tablet 04/29/19 Unknown Rx Magnesium Oxide [Mag-Ox] 400 mg PO QDAY #20 tablet 04/29/19 Unknown Rx Multivitamin Tab [Multiple Vitamin 1 each PO QDAY #30 tablet 04/29/19 Unknown Rx TAB (Theragran)] Pantoprazole [Protonix TAB] 40 mg PO DAILY #30 tablet 04/29/19 Unknown Rx Thiamine [Vitamin B-1] 100 mg PO DAILY #30 tablet 04/29/19 Unknown Rx Allergies Allergy/AdvReac Type Severity Reaction Status Date / Time No Known Allergies Allergy Unverified 12/03/13 04:03 ED Review of Systems ROS: Stated complaint: CHEST/BACK PAIN/DIFFICULTY WALKING Other details as noted in HPI Constitutional: denies: chills, fever Eyes: denies: eye pain, eye discharge, vision change ENT: denies: ear pain, throat pain Respiratory: denies: cough, shortness of breath, wheezing Cardiovascular: chest pain. denies: palpitations Endocrine: no symptoms reported Gastrointestinal: nausea, vomiting. denies: abdominal pain, diarrhea Genitourinary: denies: urgency, dysuria Musculoskeletal: denies: back pain, joint swelling, arthralgia Skin: denies: rash, lesions Neurological: denies: headache, weakness, paresthesias Psychiatric: denies: anxiety, depression Hematological/Lymphatic: denies: easy bleeding, easy bruising ED Past Medical Hx - Past Medical History Previous Medical History?: Yes Hx Hypertension: Yes Hx Arthritis: Yes Hx Psychiatric Treatment: No Additional medical history: Daily Alcohol Consumption - Surgical History Past Surgical History?: Yes Additional Surgical History: total knee replacement - Social History Smoking Status: Current Every Day Smoker Substance Use Type: Alcohol, Prescribed - Medications Home Medications: Home Medications Medication Instructions Recorded Confirmed Last Taken Type Aspirin EC 81 mg PO QDAY 04/27/19 04/27/19 Unknown History Cetirizine HCl [Zyrtec 10mg tab] 20 mg PO BID 04/27/19 04/27/19 Unknown History Clobetasol 0.05% [Temovate] 1 applicatio TP BID 04/27/19 04/27/19 Unknown History Metoprolol [Lopressor TAB] 25 mg PO BID 04/27/19 04/27/19 Unknown History Potassium Chloride [K-Dur] 40 meq PO BID 04/27/19 04/27/19 Unknown History buPROPion SR [Wellbutrin SR] 150 mg PO BID 04/27/19 04/27/19 Unknown History Folic Acid [Folvite] 1 mg PO QDAY #30 tablet 04/29/19 Unknown Rx Magnesium Oxide [Mag-Ox] 400 mg PO QDAY #20 tablet 04/29/19 Unknown Rx Multivitamin Tab [Multiple Vitamin 1 each PO QDAY #30 tablet 04/29/19 Unknown Rx TAB (Theragran)] Pantoprazole [Protonix TAB] 40 mg PO DAILY #30 tablet 04/29/19 Unknown Rx Thiamine [Vitamin B-1] 100 mg PO DAILY #30 tablet 04/29/19 Unknown Rx ED Physical Exam - General Limitations: Physical Limitation General appearance: alert, in no apparent distress - Head Head exam: Present: atraumatic, normocephalic - Eye Eye exam: Present: normal appearance - ENT ENT exam: Present: mucous membranes moist - Neck Neck exam: Present: normal inspection - Respiratory Respiratory exam: Present: normal lung sounds bilaterally. Absent: respiratory distress - Cardiovascular Cardiovascular Exam: Present: regular rate, normal rhythm. Absent: systolic murmur, diastolic murmur, rubs, gallop - GI/Abdominal GI/Abdominal exam: Present: soft, normal bowel sounds - Rectal Rectal exam: Present: deferred - Extremities Exam Extremities exam: Present: normal inspection - Back Exam Back exam: Present: normal inspection - Neurological Exam Neurological exam: Present: alert, oriented X3 - Psychiatric Psychiatric exam: Present: normal affect, normal mood - Skin Skin exam: Present: warm, dry, intact, normal color. Absent: rash ED Course Vital Signs 05/21/19 09:44 Temperature 98.3 F Pulse Rate 73 Respiratory 18 Rate Blood Pressure 130/103 O2 Sat by Pulse 95 Oximetry ED Medical Decision Making - Lab Data Result diagrams: 05/21/19 10:00 05/21/19 10:00 Lab Results 05/21/19 05/21/19 05/21/19 Range/Units 10:00 10:00 10:00 WBC 6.3 (4.5-11.0) K/mm3 RBC 4.02 (3.65-5.03) M/mm3 Hgb 14.0 (11.8-15.2) gm/dl Hct 41.1 (35.5-45.6) % MCV 102 H (84-94) fl MCH 35 H (28-32) pg MCHC 34 (32-34) % RDW 13.5 (13.2-15.2) % Plt Count 146 (140-440) K/mm3 Lymph % (Auto) 20.1 (13.4-35.0) % [place] % (Auto) 6.3 (0.0-7.3) % Eos % (Auto) 2.0 (0.0-4.3) % Baso % (Auto) 0.9 (0.0-1.8) % Lymph # 1.3 (1.2-5.4) K/mm3 [place] # 0.4 (0.0-0.8) K/mm3 Eos # 0.1 (0.0-0.4) K/mm3 Baso # 0.1 (0.0-0.1) K/mm3 Seg Neutrophils % 70.7 H (40.0-70.0) % Seg Neutrophils # 4.5 (1.8-7.7) K/mm3 PT 13.1 (12.2-14.9) Sec. INR 1.02 (0.87-1.13) APTT 23.4 L (24.2-36.6) Sec. Sodium 142 (137-145) mmol/L Potassium 4.0 (3.6-5.0) mmol/L Chloride 102.5 (98-107) mmol/L Carbon Dioxide 20 L (22-30) mmol/L Anion Gap 24 mmol/L BUN 4 L (9-20) mg/dL Creatinine 0.7 L (0.8-1.5) mg/dL Estimated GFR > 60 ml/min BUN/Creatinine Ratio 6 % Glucose 117 H (75-100) mg/dL Calcium 8.9 (8.4-10.2) mg/dL Troponin T < 0.010 (0.00-0.029) ng/mL 05/21/19 Range/Units 12:38 WBC (4.5-11.0) K/mm3 RBC (3.65-5.03) M/mm3 Hgb (11.8-15.2) gm/dl Hct (35.5-45.6) % MCV (84-94) fl MCH (28-32) pg MCHC (32-34) % RDW (13.2-15.2) % Plt Count (140-440) K/mm3 Lymph % (Auto) (13.4-35.0) % [place] % (Auto) (0.0-7.3) % Eos % (Auto) (0.0-4.3) % Baso % (Auto) (0.0-1.8) % Lymph # (1.2-5.4) K/mm3 [place] # (0.0-0.8) K/mm3 Eos # (0.0-0.4) K/mm3 Baso # (0.0-0.1) K/mm3 Seg Neutrophils % (40.0-70.0) % Seg Neutrophils # (1.8-7.7) K/mm3 PT (12.2-14.9) Sec. INR (0.87-1.13) APTT (24.2-36.6) Sec. Sodium (137-145) mmol/L Potassium (3.6-5.0) mmol/L Chloride (98-107) mmol/L Carbon Dioxide (22-30) mmol/L Anion Gap mmol/L BUN (9-20) mg/dL Creatinine (0.8-1.5) mg/dL Estimated GFR ml/min BUN/Creatinine Ratio % Glucose (75-100) mg/dL Calcium (8.4-10.2) mg/dL Troponin T < 0.010 (0.00-0.029) ng/mL - EKG Data -: EKG Interpreted by Id - EKG Data 05/21/19 14:16 EKG shows sinus rhythm with no ST segment elevation and T-wave inversion impression normal axis. - Radiology Data Radiology results: report reviewed, image reviewed Foil Spooler: Shows no acute cardiopulmonary disease - Medical Decision Making Chief medical diagnosis: Alcohol withdrawal Differential diagnosis: NStemi, electrolyte abnormality We'll get CBC BMP CHEST x-ray oral Ativan and EKG Since blood work is unremarkable I will send patient home. Critical care attestation.: If time is entered above; I have spent that time in minutes in the direct care of this critically ill patient, excluding procedure time. ED Disposition Clinical Impression: Alcohol abuse, Chest pain at rest Alcohol withdrawal Qualifiers: Complication of substance-induced condition: uncomplicated Qualified Code(s): F10.230 - Alcohol dependence with withdrawal, uncomplicated Disposition: DC-01 TO HOME OR SELFCARE Is pt being admited?: No Does the pt Need Aspirin: No Condition: Stable Instructions: Chest Pain (ED)
[2019-05-21] MEDS ORDERED: ATIVAN PO ONE (14:05)
[2019-05-21] MEDS ORDERED: ASPIRIN ONE ×2 (14:32→14:33)
[2019-05-21 15:24] VITALS: BP 145/62
--- NOTE | 2019-05-21 15:25 | XRay Report ---
LUMBOSACRAL SPINE 3 VIEWS INDICATION / CLINICAL INFORMATION: Back pain. Body aches, generalized weakness and difficulty walking for 2 days. COMPARISON: None available. FINDINGS: BONES / JOINT(S): There are left-sided pedicle screws at L4 and L5. There is a disc implant at L4-5. There is mild lumbar levoscoliosis. There is generalized advanced lumbar spondylosis. The pedicles ar e intact and the SI joints are normal. I see no evidence of fracture, subluxation or destructive lesi on. SOFT TISSUES: There are prominent atherosclerotic calcifications involving the abdominal aorta and it s branches without aneurysm. ADDITIONAL FINDINGS: None. IMPRESSION: Advanced spondylosis. Surgical changes at L4-5. No acute abnormality. Signer Name: Jas Manzano MD Signed: 05/21/2019 3:20 PM Workstation Name: [id number]
== END 2019-05-21 15:40 | disposition home or self-care (01) ==
LOC: ED 09:42
DX: F10.120 Alcohol abuse with intoxication, uncomplicated (principal); R07.9 Chest pain, unspecified; I10 Essential (primary) hypertension; M19.90 Unspecified osteoarthritis, unspecified site; F17.200 Nicotine dependence, unspecified, uncomplicated; Z96.653 Presence of artificial knee joint, bilateral; Z79.82 Long term (current) use of aspirin; Z79.899 Other long term (current) drug therapy
CPT/HCPCS: 36415; 71045; 72100; 80048; 84484; 85025; 85610; 85730; 93005; 93010; 99284

== ENCOUNTER 2019-07-12 08:50 | Outpatient (CLI) | payer MEDICARE | END 2019-07-12 08:51 | disposition home or self-care (01) | LOC: PT 08:50 | PROVIDERS: ATTEND Otolaryngology | DX: R13.12 Dysphagia, oropharyngeal phase (principal); I10 Essential (primary) hypertension ==

== ENCOUNTER 2020-04-26 19:05 | Inpatient (IN) | payer MEDICARE ==
[2020-04-26] MEDS ORDERED: THIAMINE 100 MG, FOLIC ACID 1 MG, MULTIPLE VITAMIN INJ, ADULT 10 ML in SODIUM CHLORIDE ... IV ONE (19:36)
--- NOTE | 2020-04-26 19:36 | Emergency Department Report ---
ED Chest Pain HPI - General Stated Complaint: HEAD PAIN Time Seen by Provider: 04/26/20 19:19 - History of Present Illness Initial Comments: 74-year-old male presents to the emergency department via EMS from home with a complaint of some chest pain and palpitations that started earlier this afternoon. Patient also presents intoxicated as he has a history of alcohol abuse and dependence. He did not take anything for his symptoms prior to presentation and did not receive anything in route with EMS other than a 250 cc bolus of IV fluids secondary to some transient hypotension. The patient also has a history of previous SVT and remote prostate cancer. He is a former smoker. He denies any illicit drug use. No recent travel or sick contacts at home. He denies any fever, nausea, vomiting. At this time the patient says that all of his symptoms have resolved but when the chest pains occur they were sharp and intermittent. No obvious aggravating or alleviating factors. - Related Data Home Medications Medication Instructions Recorded Confirmed Last Taken Aspirin EC [Halfprin EC] 81 mg PO QDAY 04/27/19 04/27/19 Unknown Cetirizine HCl [Zyrtec 10mg tab] 20 mg PO BID 04/27/19 04/27/19 Unknown Clobetasol 0.05% [Temovate] 1 applicatio TP BID 04/27/19 04/27/19 Unknown Metoprolol [Lopressor TAB] 25 mg PO BID 04/27/19 04/27/19 Unknown Potassium Chloride [K-Dur] 40 meq PO BID 04/27/19 04/27/19 Unknown buPROPion SR [Wellbutrin SR] 150 mg PO BID 04/27/19 04/27/19 Unknown Previous Rx's Medication Instructions Recorded Last Taken Type Folic Acid [Folvite] 1 mg PO QDAY #30 tablet 04/29/19 Unknown Rx Magnesium Oxide [Mag-Ox] 400 mg PO QDAY #20 tablet 04/29/19 Unknown Rx Multivitamin Tab [Multiple Vitamin 1 each PO QDAY #30 tablet 04/29/19 Unknown Rx TAB (Theragran)] Pantoprazole [Protonix TAB] 40 mg PO DAILY #30 tablet 04/29/19 Unknown Rx Thiamine [Vitamin B-1] 100 mg PO DAILY #30 tablet 04/29/19 Unknown Rx Allergies Allergy/AdvReac Type Severity Reaction Status Date / Time No Known Allergies Allergy Unverified 12/03/13 04:03 Heart Score - HEART Score History: Slightly suspicious EKG: Normal Age: > 65 Risk factors: 1-2 risk factors Troponin: < normal limit HEART Score: 3 ED Review of Systems ROS: Stated complaint: HEAD PAIN Other details as noted in HPI Comment: All other systems reviewed and negative Constitutional: denies: chills, fever Eyes: denies: eye pain, vision change ENT: denies: ear pain, throat pain Respiratory: denies: cough, wheezing Cardiovascular: chest pain, palpitations Gastrointestinal: denies: abdominal pain, vomiting Genitourinary: denies: dysuria, discharge Musculoskeletal: denies: back pain, arthralgia Skin: denies: rash, lesions Neurological: denies: headache, weakness ED Past Medical Hx - Past Medical History Hx Hypertension: Yes Hx CVA: No Hx Diabetes: Yes Hx Renal Disease: No Hx Arthritis: No Hx Seizures: No Hx Psychiatric Treatment: No Hx Asthma: No Additional medical history: Daily Alcohol Consumption - Surgical History Hx Pacemaker: No Additional Surgical History: total knee replacement - Social History Smoking Status: Current Every Day Smoker Substance Use Type: Alcohol, Prescribed - Medications Home Medications: Home Medications Medication Instructions Recorded Confirmed Last Taken Type Aspirin EC [Halfprin EC] 81 mg PO QDAY 04/27/19 04/27/19 Unknown History Cetirizine HCl [Zyrtec 10mg tab] 20 mg PO BID 04/27/19 04/27/19 Unknown History Clobetasol 0.05% [Temovate] 1 applicatio TP BID 04/27/19 04/27/19 Unknown History Metoprolol [Lopressor TAB] 25 mg PO BID 04/27/19 04/27/19 Unknown History Potassium Chloride [K-Dur] 40 meq PO BID 04/27/19 04/27/19 Unknown History buPROPion SR [Wellbutrin SR] 150 mg PO BID 04/27/19 04/27/19 Unknown History Folic Acid [Folvite] 1 mg PO QDAY #30 tablet 04/29/19 Unknown Rx Magnesium Oxide [Mag-Ox] 400 mg PO QDAY #20 tablet 04/29/19 Unknown Rx Multivitamin Tab [Multiple Vitamin 1 each PO QDAY #30 tablet 04/29/19 Unknown Rx TAB (Theragran)] Pantoprazole [Protonix TAB] 40 mg PO DAILY #30 tablet 04/29/19 Unknown Rx Thiamine [Vitamin B-1] 100 mg PO DAILY #30 tablet 04/29/19 Unknown Rx ED Physical Exam - Other Other exam information: GENERAL: The patient is well-developed well-nourished. HENT: Normocephalic. Atraumatic. Patient has moist mucous membranes. EYES: Extraocular motions are intact. NECK: Supple. Trachea is midline. CHEST/LUNGS: Clear to auscultation. There is no respiratory distress noted. HEART/CARDIOVASCULAR: Regular. There is no tachycardia. There is no murmur. ABDOMEN: Abdomen is soft, nontender. Patient has normal bowel sounds. There is no abdominal distention. SKIN: Skin is warm and dry. NEURO: Patient is awake and appears intoxicated. Patient does display some confusion. He has some pressured speech and is rambling. MUSCULOSKELETAL: There is no tenderness or deformity. There is no evidence of acute injury. ED Course Vital Signs 04/26/20 04/26/20 04/26/20 19:25 19:30 19:35 Temperature 98.3 F Pulse Rate 132 H 110 H 116 H Respiratory 16 20 20 Rate Blood Pressure 100/68 Blood Pressure 100/68 [Left] O2 Sat by Pulse 96 96 Oximetry 04/26/20 04/26/20 04/26/20 19:36 19:46 20:00 Temperature 98.3 F Pulse Rate 116 H 110 H 112 H Respiratory 20 26 H 24 Rate Blood Pressure 100/68 100/68 100/68 Blood Pressure [Left] O2 Sat by Pulse 96 96 97 Oximetry 04/26/20 04/26/20 04/26/20 20:16 20:30 20:46 Temperature Pulse Rate 114 H 107 H 107 H Respiratory 20 24 25 H Rate Blood Pressure 100/68 100/68 100/68 Blood Pressure [Left] O2 Sat by Pulse 97 96 96 Oximetry 04/26/20 04/26/20 21:00 21:16 Temperature Pulse Rate 110 H 103 H Respiratory 15 20 Rate Blood Pressure 116/68 116/68 Blood Pressure [Left] O2 Sat by Pulse 96 94 Oximetry JOSE score - Jose Score Age > 65: (1) Yes Aspirin use within the Past 7 Days: (0) No 3 or more CAD Risk Factors: (0) No 2 or more Angina events in past 24 hrs: (1) Yes Known CAD with more than 50% Stenosis: (0) No Elevated Cardiac Markers: (0) No ST Deviation Greater than 0.5mm: (0) No JOSE Score: 2 ED Medical Decision Making - Lab Data Result diagrams: 04/26/20 23:40 04/26/20 19:43 - EKG Data -: EKG Interpreted by Me EKG shows normal: sinus rhythm (Junctional rhythm), axis, intervals, QRS complexes (Right bundle branch block), ST-T waves Rate: tachycardia (111 bpm) - EKG Data When compared to previous EKG there are: no significant change Interpretation: unchanged when compared t (05/21/19) - Radiology Data Radiology results: image reviewed interpreted by me: Chest x-ray shows some patchy infiltrates to the right lower lung concerning for pneumonia. - Medical Decision Making This patient presented to the emergency department with a complaint of some intermittent chest pains and palpitations. He has a history of alcohol abuse and dependence and does appear intoxicated. On top of that, the patient's called and says that he has some history of dementia as well. EKG shows a right bundle branch block and is unchanged from previous. First troponin is negative. Chest x-ray shows a right lower lobe pneumonia. Blood alcohol level came back at 0.21. An IV was placed and the patient has received some banana bag IV fluid resuscitation. Blood cultures have been sent and the patient has been started on Rocephin and azithromycin for the pneumonia. It is been about 1 year since the patient last had a stress test. He will be admitted to the hospital for further evaluation and treatment and was accepted for admission by the hospitalist, Dr. Schaffer. Critical Care Time: No Critical care attestation.: If time is entered above; I have spent that time in minutes in the direct care of this critically ill patient, excluding procedure time. ED Disposition Clinical Impression: Alcohol abuse, Intermittent chest pain, Hypomagnesemia, Chest pain at rest Pneumonia Qualifiers: Pneumonia type: due to unspecified organism Laterality: right Lung location: lower lobe of lung Qualified Code(s): J18.9 - Pneumonia, unspecified organism Disposition: OP ADMIT IP TO THIS HOSP Is pt being admited?: Yes Condition: Fair Time of Disposition: 22:24
[2020-04-26 19:59] LABS: Basophils # (Auto) 0.1 K/mm3 (0.0-0.1); Basophils % (Auto) 1.7 % (0.0-1.8); Eosinophils # (Auto) 0.2 K/mm3 (0.0-0.4); Eosinophils % (Auto) 3.4 % (0.0-4.3); Hematocrit 33.9 % (35.5-45.6); Lymphocytes # (Auto) 1.8 K/mm3 (1.2-5.4); Lymphocytes % (Auto) 32.1 % (13.4-35.0); Mean Corpuscular HGB Conc 32 % (32-34); Mean Corpuscular Volume 89 fl (84-94); Monocytes # (Auto) 0.4 K/mm3 (0.0-0.8); Monocytes % (Auto) 6.8 % (0.0-7.3); Platelet Count 287 K/mm3 (140-440); Red Blood Count 3.81 M/mm3 (3.65-5.03); Red Cell Distribution Width 18.4 % (13.2-15.2)
--- NOTE | 2020-04-26 20:07 | XRay Report ---
CHEST 1 VIEW INDICATION / CLINICAL INFORMATION: MAIN: CP; Pt arrived via EMS with a cheif complaint of chest pain. Pt admits to drinking Seagrams gin today. Pt also reports a headache.. COMPARISON: Chest radiograph 05/21/2019 FINDINGS: SUPPORT DEVICES: None. HEART / MEDIASTINUM: No significant abnormality. LUNGS / PLEURA: Interval development of patchy airspace opacity in the right lung base. The left lung is clear. No pleural effusion. No pneumothorax. ADDITIONAL FINDINGS: Prior right shoulder replacement. IMPRESSION: 1. Interval development of patchy airspace opacity in the right lung base worrisome for pneumonia in the appropriate clinical setting. Signer Name: Juliana Weiss MD Signed: 04/26/2020 8:02 PM Workstation Name: [id number]
[2020-04-26 20:09] LABS: INR 1.09 (0.87-1.13)
[2020-04-26 20:10] LABS: Partial Thromboplastin Time 27.5 Sec. (24.2-36.6)
[2020-04-26 20:18] LABS: Alanine Aminotransferase 10 units/L (7-56); Albumin 2.9 g/dL (3.9-5); BUN/Creatinine Ratio 17; Blood Urea Nitrogen 12 mg/dL (9-20); Calcium 8.7 mg/dL (8.4-10.2); Hemolysis Index 5
[2020-04-26] MEDS ORDERED: MAGNESIUM SULFATE 2 GM/50 ML BAG IV ONE (20:19)
[2020-04-26] MEDS ORDERED: cefTRIAXone/NS 1 GM/50 ML 1 GM/50 ML BAG IV ONE (20:39)
[2020-04-26] MEDS ORDERED: LORazepam 2 MG/ML VIAL IV PRN (20:39)
[2020-04-26 21:00] LABS: Amphetamine Screen,Urine PRESUMPTIVE NEGATIVE; Cannabinoid Screen,Urine PRESUMPTIVE NEGATIVE; Cocaine Screen,Urine PRESUMPTIVE NEGATIVE; Methadone Screen,Urine PRESUMPTIVE NEGATIVE; Opiate Screen,Urine PRESUMPTIVE NEGATIVE
[2020-04-26] MEDS ORDERED: AZITHROMYCIN 500 MG in SODIUM CHLORIDE 0.9% 250ML 250 ML IV ONE (21:00)
[2020-04-26 21:15] LABS: Benzodiazepines Screen,Urine PRESUMPTIVE POSITIVE
[2020-04-26] MEDS: LORazepam 2 MG/ML VIAL IV PRN (21:24)
[2020-04-26] MEDS ORDERED: ASPIRIN 81 MG TAB CHEW PO ONE (22:20)
[2020-04-26] MEDS ORDERED: ACETAMINOPHEN 325 MG TAB PO PRN (22:58)
[2020-04-26] MEDS ORDERED: ONDANSETRON 4 MG/2 ML INJ IV PRN (22:58)
[2020-04-26] MEDS ORDERED: MORPHINE 2 MG/1 ML INJ IV PRN (22:58)
[2020-04-26] MEDS ORDERED: NITROGLYCERIN 0.4 MG TAB SUBL SL PRN (22:58)
[2020-04-26] MEDS ORDERED: MAGNESIUM HYDROXIDE (MOM) ORAL LIQD UDC PO PRN (22:58)
--- NOTE | 2020-04-26 23:12 | History and Physical Report ---
History of Present Illness Date of examination: 04/26/20 Date of admission: 04/26/20 22:24 Chief complaint: Chest pain History of present illness: 74-year-old male presenting to the emergency room via EMS complaining of chest discomfort and palpitations started earlier this afternoon. Patient has known history of alcohol abuse and dependence. Patient was found to be mildly hypotensive en route to the hospital was given a bolus of IV fluid normal saline by EMS. Patient denies any fever or chills, no nausea vomiting, no headache or dizziness. Chest pain is said to be intermittent and sharp, no known relieving or exacerbating factor. Patient is known to have a previous history of SVT. EKG today showed some junctional rhythm. Work-up in the emergency room including chest x-ray reveals right lower lobe infiltrate and also hypomagnesemia on the chemistry. Patient was found to be slightly agitated. Past History Past Medical History: hypertension Past Surgical History: total knee replacement Social history: smoking (Current daily smoker), alcohol abuse Family history: no significant family history Medications and Allergies Allergies Allergy/AdvReac Type Severity Reaction Status Date / Time No Known Allergies Allergy Unverified 12/03/13 04:03 Home Medications Medication Instructions Recorded Confirmed Last Taken Type Aspirin EC [Halfprin EC] 81 mg PO QDAY 04/27/19 04/27/19 Unknown History Cetirizine HCl [Zyrtec 10mg tab] 20 mg PO BID 04/27/19 04/27/19 Unknown History Clobetasol 0.05% [Temovate] 1 applicatio TP BID 04/27/19 04/27/19 Unknown History Metoprolol [Lopressor TAB] 25 mg PO BID 04/27/19 04/27/19 Unknown History Potassium Chloride [K-Dur] 40 meq PO BID 04/27/19 04/27/19 Unknown History buPROPion SR [Wellbutrin SR] 150 mg PO BID 04/27/19 04/27/19 Unknown History Folic Acid [Folvite] 1 mg PO QDAY #30 tablet 04/29/19 Unknown Rx Magnesium Oxide [Mag-Ox] 400 mg PO QDAY #20 tablet 04/29/19 Unknown Rx Multivitamin Tab [Multiple Vitamin 1 each PO QDAY #30 tablet 04/29/19 Unknown Rx TAB (Theragran)] Pantoprazole [Protonix TAB] 40 mg PO DAILY #30 tablet 04/29/19 Unknown Rx Thiamine [Vitamin B-1] 100 mg PO DAILY #30 tablet 04/29/19 Unknown Rx Active Meds: Active Medications Thiamine HCl 100 mg/ Folic Acid 1 mg/ Multivitamins/Minerals 10 ml/ Sodium Chloride 1,011.2 mls @ 250 mls/hr IV ONCE ONE Stop: 04/26/20 23:38 Last Admin: 04/26/20 20:42 Dose: 250 mls/hr Documented by: Lorazepam (Ativan) 2 mg IV Q1HR PRN PRN Reason: Nivia 8-15 Last Admin: 04/26/20 21:24 Dose: 2 mg Documented by: Lorazepam (Ativan) 4 mg IV Q1HR PRN PRN Reason: Nivia 16- Review of Systems Constitutional: no fever, no chills Ears, nose, mouth and throat: no nasal congestion, no sore throat Cardiovascular: chest pain, palpitations Respiratory: no cough, no shortness of breath Gastrointestinal: no abdominal pain, no nausea, no vomiting, no diarrhea Genitourinary Male: no dysuria, no hematuria, no flank pain Musculoskeletal: no neck pain, no low back pain Integumentary: no rash, no pruritis Neurological: no headaches, no confusion Psychiatric: no anxiety, no depression Exam - Constitutional Vitals: Temp Pulse Resp BP Pulse Ox 98.3 F 116 H 20 100/68 96 04/26/20 19:36 04/26/20 19:36 04/26/20 19:36 04/26/20 19:36 04/26/20 19:36 General appearance: Present: no acute distress, well-nourished - EENT Eyes: Present: PERRL, EOM intact. Absent: scleral icterus ENT: hearing intact, clear oral mucosa, dentition normal - Neck Neck: Present: supple, normal ROM - Respiratory Respiratory effort: normal Respiratory: right: diminished - Cardiovascular Rhythm: regular Heart Sounds: Present: S1 & S2. Absent: gallop, systolic murmur, diastolic murmur - Extremities Extremities: no ischemia, pulses intact, pulses symmetrical, No edema, Full ROM Peripheral Pulses: within normal limits - Abdominal General gastrointestinal: Present: soft, non-tender, non-distended, normal bowel sounds - Integumentary Integumentary: Present: clear, warm, dry. Absent: jaundice, rash - Musculoskeletal Musculoskeletal: strength equal bilaterally - Psychiatric Psychiatric: appropriate mood/affect, intact judgment & insight, cooperative, agitated (Intermittently agitated) - Neurologic Neurologic: CNII-XII intact, moves all extremities HEART Score - HEART Score EKG: Normal Age: > 65 Risk factors: 1-2 risk factors Troponin: Troponin T 0.011 ng/mL (0.00-0.029) 04/26/20 22:27 Troponin: < normal limit Results - Labs CBC & Chem 7: 04/26/20 23:40 04/26/20 23:40 Labs: Abnormal lab results 04/26/20 04/26/20 04/26/20 Range/Units 19:43 19:43 19:43 Hgb 11.0 L (11.8-15.2) gm/dl Hct 33.9 L (35.5-45.6) % RDW 18.4 H (13.2-15.2) % Chloride 107.6 H (98-107) mmol/L Carbon Dioxide 21 L (22-30) mmol/L Creatinine 0.7 L (0.8-1.5) mg/dL Glucose 116 H (75-100) mg/dL Magnesium 1.30 L (1.7-2.3) mg/dL Albumin 2.9 L (3.9-5) g/dL Plasma/Serum Alcohol 0.21 H (0-0.07) % Assessment and Plan - Patient Problems (1) Pneumonia Current Visit: Yes Status: Acute Qualifiers: Pneumonia type: due to unspecified organism Laterality: right Lung location: lower lobe of lung Qualified Code(s): J18.9 - Pneumonia, unspecified organism Plan to address problem: Patient placed on empiric IV antibiotics. We will await blood culture result. (2) Hypomagnesemia Current Visit: Yes Status: Acute Plan to address problem: Magnesium will be repleted and will monitor chemistry. (3) Alcohol abuse Current Visit: Yes Status: Chronic Plan to address problem: Patient placed on alcohol withdrawal protocol. (4) HTN (hypertension) Current Visit: No Status: Chronic Qualifiers: Plan to address problem: We will monitor vital signs and continue routine home medications. (5) DVT prophylaxis Current Visit: Yes Status: Acute Plan to address problem: Patient placed on subcutaneous Lovenox. (6) Full code status Current Visit: Yes Status: Acute
[2020-04-27] MEDS ORDERED: LORazepam 2 MG/ML VIAL ONE (00:01)
[2020-04-27 00:23] LABS: Basophils # (Auto) 0.1 K/mm3 (0.0-0.1); Basophils % (Auto) 1.6 % (0.0-1.8); Eosinophils # (Auto) 0.1 K/mm3 (0.0-0.4); Eosinophils % (Auto) 2.9 % (0.0-4.3); Hematocrit 30.1 % (35.5-45.6); Hemoglobin 9.8 gm/dl (11.8-15.2); Lymphocytes # (Auto) 1.8 K/mm3 (1.2-5.4); Lymphocytes % (Auto) 36.1 % (13.4-35.0); Mean Corpuscular HGB Conc 33 % (32-34); Mean Corpuscular Volume 90 fl (84-94); Monocytes # (Auto) 0.3 K/mm3 (0.0-0.8); Monocytes % (Auto) 5.5 % (0.0-7.3); Platelet Count 254 K/mm3 (140-440); Red Blood Count 3.35 M/mm3 (3.65-5.03); Red Cell Distribution Width 18.3 % (13.2-15.2)
[2020-04-27 00:36] LABS: BUN/Creatinine Ratio 20; Blood Urea Nitrogen 12 mg/dL (9-20); Calcium 8.2 mg/dL (8.4-10.2); Hemolysis Index 6
[2020-04-27] MEDS ORDERED: ASPIRIN 81 MG TAB CHEW ONE (00:42)
[2020-04-27] MEDS: LORazepam 2 MG/ML VIAL IV PRN ×7 (01:21→20:49)
[2020-04-27] MEDS: SODIUM CHLORIDE 0.9% 1000 ML 1,000 ML IV SCH ×2 (01:24→10:18)
[2020-04-27 05:58] LABS: Basophils # (Auto) 0.1 K/mm3 (0.0-0.1); Basophils % (Auto) 1.4 % (0.0-1.8); Eosinophils # (Auto) 0.2 K/mm3 (0.0-0.4); Eosinophils % (Auto) 2.9 % (0.0-4.3); Hematocrit 29.8 % (35.5-45.6); Hemoglobin 9.9 gm/dl (11.8-15.2); Lymphocytes # (Auto) 1.3 K/mm3 (1.2-5.4); Lymphocytes % (Auto) 21.7 % (13.4-35.0); Mean Corpuscular HGB Conc 33 % (32-34); Mean Corpuscular Volume 89 fl (84-94); Monocytes # (Auto) 0.4 K/mm3 (0.0-0.8); Platelet Count 225 K/mm3 (140-440); Red Blood Count 3.34 M/mm3 (3.65-5.03); Red Cell Distribution Width 18.5 % (13.2-15.2)
[2020-04-27 06:07] LABS: INR 1.05 (0.87-1.13)
[2020-04-27 06:12] LABS: BUN/Creatinine Ratio 20; Blood Urea Nitrogen 12 mg/dL (9-20); Calcium 7.9 mg/dL (8.4-10.2); Hemolysis Index 2
[2020-04-27] MEDS ORDERED: AZITHROMYCIN 500 MG in SODIUM CHLORIDE 0.9% 250ML 250 ML IV SCH (10:00)
[2020-04-27] MEDS ORDERED: ASPIRIN EC 325 MG TAB PO SCH (10:00)
[2020-04-27] MEDS: cefTRIAXone/NS 2 GM/100 ML 2 GM/100 ML BAG IV SCH (10:15)
[2020-04-27 10:38] LABS: C-Reactive Protein 0.1 mg/dL (0.00-1.30)
--- NOTE | 2020-04-27 10:40 | Consultation ---
History of Present Illness Consult date: 04/27/20 Requesting physician: SERGIO AGRAWAL Consult reason: chest pain History of present illness: 74-year-old male with history of EtOH abuse hyperlipidemia coronary arterial disease has been at [facility] multiple times patient is noncompliant with medication spoke with the patient's sister states been the hospital multiple times for chest pain but patient continues to drink. Denies any syncope. Was brought by ambulance for chest pain had transient hypotension required fluids. Patient is under restraint right now for altered mental status secondary to EtOH withdrawal. We have seen the patient multiple times at [facility]. Noncompliant. No fever no chills. Past History Past Medical History: CAD, hypertension, hyperlipidemia Past Surgical History: total knee replacement Social history: smoking (Current daily smoker), alcohol abuse Family history: no significant family history Medications and Allergies Allergies Allergy/AdvReac Type Severity Reaction Status Date / Time No Known Allergies Allergy Unverified 12/03/13 04:03 Home Medications Medication Instructions Recorded Confirmed Last Taken Type Aspirin EC [Halfprin EC] 81 mg PO QDAY 04/27/19 04/27/19 Unknown History Cetirizine HCl [Zyrtec 10mg tab] 20 mg PO BID 04/27/19 04/27/19 Unknown History Clobetasol 0.05% [Temovate] 1 applicatio TP BID 04/27/19 04/27/19 Unknown History Metoprolol [Lopressor TAB] 25 mg PO BID 04/27/19 04/27/19 Unknown History Potassium Chloride [K-Dur] 40 meq PO BID 04/27/19 04/27/19 Unknown History buPROPion SR [Wellbutrin SR] 150 mg PO BID 04/27/19 04/27/19 Unknown History Folic Acid [Folvite] 1 mg PO QDAY #30 tablet 04/29/19 Unknown Rx Magnesium Oxide [Mag-Ox] 400 mg PO QDAY #20 tablet 04/29/19 Unknown Rx Multivitamin Tab [Multiple Vitamin 1 each PO QDAY #30 tablet 04/29/19 Unknown Rx TAB (Theragran)] Pantoprazole [Protonix TAB] 40 mg PO DAILY #30 tablet 04/29/19 Unknown Rx Thiamine [Vitamin B-1] 100 mg PO DAILY #30 tablet 04/29/19 Unknown Rx Active Meds: Active Medications Acetaminophen (Tylenol) 650 mg PO Q4H PRN PRN Reason: Pain MILD(1-3)/Fever >100.5/MAYES Enoxaparin Sodium (Enoxaparin) 40 mg SUB-Q QDAY@2200 JESS Sodium Chloride (Nacl 0.9% 1000 Ml) 1,000 mls @ 125 mls/hr IV DIRECT JESS Last Admin: 04/27/20 10:18 Dose: 125 mls/hr Documented by: Ceftriaxone Sodium (Rocephin/Ns 2 Gm/100 Ml) 2 gm in 100 mls @ 200 mls/hr IV Q24HR JESS; Protocol Last Admin: 04/27/20 10:15 Dose: 200 mls/hr Documented by: Azithromycin 500 mg/ Sodium (Chloride) 250 mls @ 250 mls/hr IV Q24HR JESS; Protocol Last Admin: 04/27/20 10:17 Dose: 250 mls/hr Documented by: Lorazepam (Ativan) 2 mg IV Q1HR PRN PRN Reason: CIWA-Ar 8-15 Last Admin: 04/27/20 10:15 Dose: 2 mg Documented by: Lorazepam (Ativan) 4 mg IV Q1HR PRN PRN Reason: CIWA-Ar 16-25 Magnesium Hydroxide (Milk Of Magnesia) 30 ml PO Q4H PRN PRN Reason: Constipation Ondansetron HCl (Zofran) 4 mg IV Q8H PRN PRN Reason: Nausea And Vomiting Sodium Chloride (Sodium Chloride Flush Syringe 10 Ml) 10 ml IV BID JESS Last Admin: 04/27/20 10:17 Dose: 10 ml Documented by: Review of Systems ROS unobtainable: due to mental status Physical Examination Vital Signs Pulse Resp 132 H 16 04/26/20 19:25 04/26/20 19:25 General appearance: other HEENT: Positive: PERRL, EOMI Neck: Positive: neck supple Cardiac: Positive: Reg Rate and Rhythm Lungs: Positive: clear to auscultation Neuro: Positive: Other (ams) Abdomen: Positive: Soft Male genitourinary: Positive: deferred Extremities: Present: normal. Absent: edema Results 04/27/20 04:50 04/27/20 04:50 Cardiac Enzymes 04/26/20 Range/Units 19:43 AST 14 (5-40) units/L Coagulation 04/26/20 04/27/20 Range/Units 19:43 04:50 PT 13.9 13.5 (12.2-14.9) Sec. INR 1.09 1.05 (0.87-1.13) APTT 27.5 (24.2-36.6) Sec. CBC 04/26/20 04/26/20 04/27/20 Range/Units 19:43 23:40 04:50 WBC 5.5 5.0 6.0 (4.5-11.0) K/mm3 RBC 3.81 3.35 L 3.34 L (3.65-5.03) M/mm3 Hgb 11.0 L 9.8 L 9.9 L (11.8-15.2) gm/dl Hct 33.9 L 30.1 L 29.8 L (35.5-45.6) % Plt Count 287 254 225 (140-440) K/mm3 Lymph # 1.8 1.8 1.3 (1.2-5.4) K/mm3 [place] # 0.4 0.3 0.4 (0.0-0.8) K/mm3 Eos # 0.2 0.1 0.2 (0.0-0.4) K/mm3 Baso # 0.1 0.1 0.1 (0.0-0.1) K/mm3 Comprehensive Metabolic Panel 04/26/20 04/26/20 04/27/20 Range/Units 19:43 23:40 04:50 Sodium 143 144 145 (137-145) mmol/L Potassium 4.2 3.9 3.8 (3.6-5.0) mmol/L Chloride 107.6 H 108.3 H 109.3 H (98-107) mmol/L Carbon Dioxide 21 L 24 23 (22-30) mmol/L BUN 12 12 12 (9-20) mg/dL Creatinine 0.7 L 0.6 L 0.6 L (0.8-1.5) mg/dL Glucose 116 H 101 H 93 (75-100) mg/dL Calcium 8.7 8.2 L 7.9 L (8.4-10.2) mg/dL AST 14 (5-40) units/L ALT 10 (7-56) units/L Alkaline Phosphatase 66 (35-129) units/L Total Protein 6.4 (6.3-8.2) g/dL Albumin 2.9 L (3.9-5) g/dL - Imaging and Cardiology Echo: report reviewed (02/2020 normal LV function no significant regurgitation was done at [facility]) Cardiac cath: report reviewed (02/2020 left main patent calcified vessel LAD is a medium caliber vessel with moderate to severe tortuosity proximal 20% diffusely mid 40% diagonal 1 ostial 90% small-caliber vessel circumflex proximal 50% bifurcates into a small to medium caliber OM1 OM 2 patent mild irregularities. RCA heavily calcified diffuse disease 30% proximally distally PDA PLV small- caliber vessel patent with normal LV function. This was done at [facility]) EKG interpretations - Telemetry EKG Rhythm: Sinus Rhythm (Normal sinus rhythm right bundle branch block) Assessment and Plan 74-year-old male with known coronary arterial disease with EtOH abuse hyperlipidemia noncompliant with medication also has a history of DVT supposed to be on Xarelto statin and Imdur. Patient does not be compliant with medication. Discussed with patient's sister. Patient needs rehabilitation for chronic alcohol abuse chest pain with coronary disease will treat medically - Patient Problems (1) CAD (coronary artery disease) Current Visit: Yes Status: Chronic Qualifiers: Coronary Disease-Associated Artery/Lesion type: [place] artery [place] vs. transplanted heart: [place] heart Associated angina: with stable angina Qualified Code(s): I25.118 - Atherosclerotic heart disease of [place] coronary artery with other forms of angina pectoris (2) AMS (altered mental status) Current Visit: Yes Status: Acute Qualifiers: Altered mental status type: delirium Qualified Code(s): R41.0 - Disorientation, unspecified (3) Alcohol abuse Current Visit: Yes Status: Chronic (4) Alcohol withdrawal Current Visit: No Status: Acute Qualifiers: Complication of substance-induced condition: uncomplicated Qualified Code(s): F10.230 - Alcohol dependence with withdrawal, uncomplicated (5) HTN (hypertension) Current Visit: No Status: Chronic Qualifiers: Hypertension type: essential hypertension (6) RBBB Current Visit: No Status: Chronic (7) Chest pain Current Visit: No Status: Resolved Qualifiers: Chest pain type: precordial pain Qualified Code(s): R07.2 - Precordial pain
--- NOTE | 2020-04-27 10:41 | Progress Note ---
Assessment and Plan Assessment and plan: Right lower lobe pneumonia. Continue IV antibiotics. Follow-up COVID testing. Metabolic encephalopathy. Etiology secondary to EtOH abuse. Continue to treat underlying causes. EtOH abuse. Continue CIWA protocol. Hypertension. Continue antihypertensive medications. Chest pain. Cardiac catheterization performed at [facility] on 02/2020 revealed left main patent calcified vessel LAD is a medium caliber vessel with moderate to severe tortuosity proximal 20% diffusely mid 40% diagonal 1 ostial 90% small-caliber vessel circumflex proximal 50% bifurcates into a small to medium caliber OM1 OM 2 patent mild irregularities. RCA heavily calcified diffuse disease 30% proximally distally PDA PLV small-caliber vessel patent with normal LV function. Cardiology following. History Interval history: No new issues overnight. Hospitalist Physical - Constitutional Vitals: Temp Pulse Resp BP Pulse Ox 98.0 F 84 18 146/62 95 04/27/20 04:34 04/27/20 07:08 04/27/20 07:08 04/27/20 07:08 04/27/20 07:08 General appearance: Present: no acute distress, well-nourished - EENT Eyes: Present: PERRL, EOM intact ENT: hearing intact, clear oral mucosa, dentition normal - Neck Neck: Present: supple, normal ROM - Respiratory Respiratory effort: normal Respiratory: bilateral: rhonchi - Cardiovascular Rhythm: regular Heart Sounds: Present: S1 & S2. Absent: gallop, rub - Extremities Extremities: no ischemia, No edema, Full ROM - Abdominal General gastrointestinal: soft, non-tender, non-distended, normal bowel sounds - Integumentary Integumentary: Present: clear, warm, dry - Neurologic Neurologic: CNII-XII intact, moves all extremities HEART Score - HEART Score EKG: Normal Age: > 65 Risk factors: 1-2 risk factors Troponin: Troponin T 0.018 ng/mL (0.00-0.029) 04/27/20 04:50 Troponin: < normal limit Results - Labs CBC & Chem 7: 04/27/20 04:50 04/27/20 10:00 Labs: Laboratory Last Values WBC 6.0 K/mm3 (4.5-11.0) 04/27/20 04:50 RBC 3.34 M/mm3 (3.65-5.03) L 04/27/20 04:50 Hgb 9.9 gm/dl (11.8-15.2) L 04/27/20 04:50 Hct 29.8 % (35.5-45.6) L 04/27/20 04:50 MCV 89 fl (84-94) 04/27/20 04:50 MCH 30 pg (28-32) 04/27/20 04:50 MCHC 33 % (32-34) 04/27/20 04:50 RDW 18.5 % (13.2-15.2) H 04/27/20 04:50 Plt Count 225 K/mm3 (140-440) 04/27/20 04:50 Lymph % (Auto) 21.7 % (13.4-35.0) 04/27/20 04:50 [place] % (Auto) 6.0 % (0.0-7.3) 04/27/20 04:50 Eos % (Auto) 2.9 % (0.0-4.3) 04/27/20 04:50 Baso % (Auto) 1.4 % (0.0-1.8) 04/27/20 04:50 Lymph # 1.3 K/mm3 (1.2-5.4) 04/27/20 04:50 [place] # 0.4 K/mm3 (0.0-0.8) 04/27/20 04:50 Eos # 0.2 K/mm3 (0.0-0.4) 04/27/20 04:50 Baso # 0.1 K/mm3 (0.0-0.1) 04/27/20 04:50 Seg Neutrophils % 68.0 % (40.0-70.0) 04/27/20 04:50 Seg Neutrophils # 4.1 K/mm3 (1.8-7.7) 04/27/20 04:50 PT 13.5 Sec. (12.2-14.9) 04/27/20 04:50 INR 1.05 (0.87-1.13) 04/27/20 04:50 APTT 27.5 Sec. (24.2-36.6) 04/26/20 19:43 Sodium 145 mmol/L (137-145) 04/27/20 04:50 Potassium 3.8 mmol/L (3.6-5.0) 04/27/20 04:50 Chloride 109.3 mmol/L (98-107) H 04/27/20 04:50 Carbon Dioxide 23 mmol/L (22-30) 04/27/20 04:50 Anion Gap 17 mmol/L 04/27/20 04:50 BUN 12 mg/dL (9-20) 04/27/20 04:50 Creatinine 0.6 mg/dL (0.8-1.5) L 04/27/20 04:50 Estimated GFR > 60 ml/min 04/27/20 04:50 BUN/Creatinine Ratio 20 % 04/27/20 04:50 Glucose 110 mg/dL (75-100) H 04/27/20 10:00 Calcium 7.9 mg/dL (8.4-10.2) L 04/27/20 04:50 Magnesium 1.30 mg/dL (1.7-2.3) L 04/26/20 19:43 Total Bilirubin 0.20 mg/dL (0.1-1.2) 04/26/20 19:43 AST 14 units/L (5-40) 04/26/20 19:43 ALT 10 units/L (7-56) 04/26/20 19:43 Alkaline Phosphatase 66 units/L (35-129) 04/26/20 19:43 Lactate Dehydrogenase 161 units/L (91-180) 04/27/20 10:00 Troponin T 0.018 ng/mL (0.00-0.029) 04/27/20 04:50 C-Reactive Protein 0.10 mg/dL (0.00-1.30) 04/27/20 10:00 Total Protein 6.4 g/dL (6.3-8.2) 04/26/20 19:43 Albumin 2.9 g/dL (3.9-5) L 04/26/20 19:43 Albumin/Globulin Ratio 0.8 % 04/26/20 19:43 Urine Opiates Screen Presumptive negative 04/26/20 20:23 Urine Methadone Screen Presumptive negative 04/26/20 20:23 Ur Barbiturates Screen Presumptive negative 04/26/20 20:23 Ur Phencyclidine Scrn Presumptive negative 04/26/20 20:23 Ur Amphetamines Screen Presumptive negative 04/26/20 20:23 U Benzodiazepines Scrn Presumptive positive 04/26/20 20:23 Urine Cocaine Screen Presumptive negative 04/26/20 20:23 U Marijuana (THC) Screen Presumptive negative 04/26/20 20:23 Drugs of Abuse Note Disclamer 04/26/20 20:23 Plasma/Serum Alcohol 0.21 % (0-0.07) H 04/26/20 19:43 Microbiology: Microbiology 04/26/20 22:27 Peripheral/Venous Blood Culture - Preliminary Culture in Progress 04/26/20 22:27 Peripheral/Venous Blood Culture - Preliminary Culture in Progress Ruiz/IV: IV Catheter Type [Left Hand] Peripheral IV Active Medications - Current Medications Current Medications: Generic Name Dose Route Start Last Admin Trade Name Freq PRN Reason Stop Dose Admin Acetaminophen 650 mg 04/26/20 22:58 Tylenol PO Q4H PRN Pain MILD(1-3)/Fever >100.5/MAYES Enoxaparin Sodium 40 mg 04/27/20 22:00 Enoxaparin SUB-Q QDAY@2200 JESS Sodium Chloride 1,000 mls @ 125 mls/hr 04/26/20 23:00 04/27/20 10:18 Nacl 0.9% 1000 Ml IV 125 mls/hr DIRECT JESS Administration Ceftriaxone Sodium 2 gm in 100 mls @ 200 mls/hr 04/27/20 10:00 04/27/20 10:15 Rocephin/Ns 2 Gm/100 Ml IV 200 mls/hr Q24HR JESS Administration Protocol Azithromycin 500 mg/ Sodium 250 mls @ 250 mls/hr 04/27/20 10:00 04/27/20 10:17 Chloride IV 250 mls/hr Q24HR JESS Administration Protocol Lorazepam 2 mg 04/26/20 20:39 04/27/20 10:15 Ativan IV 2 mg Q1HR PRN Administration CIWA-Ar 8-15 Lorazepam 4 mg 04/26/20 20:39 Ativan IV Q1HR PRN CIWA-Ar 16-25 Magnesium Hydroxide 30 ml 04/26/20 22:58 Milk Of Magnesia PO Q4H PRN Constipation Ondansetron HCl 4 mg 04/26/20 22:58 Zofran IV Q8H PRN Nausea And Vomiting Sodium Chloride 10 ml 04/27/20 10:00 04/27/20 10:17 Sodium Chloride Flush Syringe 10 Ml IV 10 ml BID JESS Administration Nutrition/Malnutrition Assess - Dietary Evaluation Nutrition/Malnutrition Findings: Nutrition Notes Start: 04/27/20 08:48 Freq: Status: Active Protocol: Document 04/27/20 08:48 LM (Rec: 04/27/20 08:54 LM [email or web address]) Nutrition Notes 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 Pt inappropriate for assessment at this time. Pt going through ETOH withdrawal per RN notes. Burn Absent Trauma Absent Current % PO Negligible Minimum of two criteria No physical signs of malnutrition #1 Nutrition Diagnosis Inadequate oral intake Etiology ETOH dependence As Evidenced by Signs and Symptoms Pt NPO Is patient on ventilator? No Is Patient Ambulatory and/or Out of Bed No REE-([facility]-confined to bed) [phone] Calculation Used for Recommendations [facility] Additional Notes Protein: 71-85g (1-1.2g/kg) Fluid: 1ml/kcal Nutrition Intervention Change Diet Order: Advance diet to cardiac when medically feasible Goal #1 diet advancement Anticipated Discharge Needs: cardiac Follow-Up By: 04/29/20 Additional Comments F/U for diet advancement/full assessment
[2020-04-27] MEDS ORDERED: FLU VACC QUAD 2019-20 (3 YR UP)/PF 60 MCG/0.5 ML SYRINGE IM ONE (12:00)
[2020-04-27] MEDS: METOPROLOL SUCCINATE XL 25 MG TAB PO SCH (13:47)
[2020-04-27] MEDS: RIVAROXABAN 20 MG TAB PO SCH (13:48)
[2020-04-27] MEDS ORDERED: ENOXAPARIN 40 MG/0.4 ML INJ SUB-Q SCH (22:00)
[2020-04-28] MEDS: AZITHROMYCIN 250 MG TAB PO SCH (09:09)
[2020-04-28] MEDS: RIVAROXABAN 20 MG TAB PO SCH (09:09)
[2020-04-28] MEDS: ASPIRIN 81 MG TAB CHEW PO SCH (09:10)
[2020-04-28] MEDS: METOPROLOL SUCCINATE XL 25 MG TAB PO SCH (09:10)
[2020-04-28] MEDS ORDERED: RIVAROXABAN 10 MG TAB PO SCH (10:00)
--- NOTE | 2020-04-28 10:10 | Progress Note ---
Assessment and Plan Assessment and plan: Right lower lobe pneumonia. Continue IV antibiotics. Follow-up COVID testing. Toxic metabolic encephalopathy. Etiology secondary to EtOH withdrawal and pneumonia. Continue to treat underlying causes. EtOH abuse. Continue CIWA protocol. Hypertension. Continue antihypertensive medications. Chest pain. Cardiac catheterization performed at [facility] on 02/2020 revealed left main patent calcified vessel LAD is a medium caliber vessel with moderate to severe tortuosity proximal 20% diffusely mid 40% diagonal 1 ostial 90% small-caliber vessel circumflex proximal 50% bifurcates into a small to medium caliber OM1 OM 2 patent mild irregularities. RCA heavily calcified diffuse disease 30% proximally distally PDA PLV small-caliber vessel patent with normal LV function. Cardiology following. 04/28/2020. Patient remains confused requiring restraints. Continue CIWA protocol. Continue IV antibiotics and follow-up serial chest x-ray. Follow-up COVID 19 testing. D-dimer is elevated but other inflammatory markers including ferritin, LDH and CRP all within normal limits. Patient currently too agitated to undergo CTA of chest. Obtain lower extremity Dopplers. History Interval history: No new issues overnight. Hospitalist Physical - Constitutional Vitals: Temp Pulse Resp BP Pulse Ox 98.0 F 84 18 159/80 99 04/28/20 04:40 04/28/20 04:10 04/28/20 04:40 04/28/20 04:40 04/27/20 14:43 General appearance: Present: other - EENT Eyes: Present: PERRL, EOM intact ENT: hearing intact, clear oral mucosa, dentition normal - Neck Neck: Present: supple, normal ROM - Respiratory Respiratory effort: normal Respiratory: bilateral: CTA - Cardiovascular Rhythm: regular Heart Sounds: Present: S1 & S2. Absent: gallop, rub - Extremities Extremities: no ischemia, No edema, Full ROM - Abdominal General gastrointestinal: soft, non-tender, non-distended, normal bowel sounds - Integumentary Integumentary: Present: clear, warm, dry - Neurologic Neurologic: CNII-XII intact, moves all extremities HEART Score - HEART Score EKG: Normal Age: > 65 Risk factors: 1-2 risk factors Troponin: Troponin T 0.018 ng/mL (0.00-0.029) 04/27/20 04:50 Troponin: < normal limit Results - Labs CBC & Chem 7: 04/27/20 04:50 04/27/20 10:00 Labs: Laboratory Last Values WBC 6.0 K/mm3 (4.5-11.0) 04/27/20 04:50 RBC 3.34 M/mm3 (3.65-5.03) L 04/27/20 04:50 Hgb 9.9 gm/dl (11.8-15.2) L 04/27/20 04:50 Hct 29.8 % (35.5-45.6) L 04/27/20 04:50 MCV 89 fl (84-94) 04/27/20 04:50 MCH 30 pg (28-32) 04/27/20 04:50 MCHC 33 % (32-34) 04/27/20 04:50 RDW 18.5 % (13.2-15.2) H 04/27/20 04:50 Plt Count 225 K/mm3 (140-440) 04/27/20 04:50 Lymph % (Auto) 21.7 % (13.4-35.0) 04/27/20 04:50 [place] % (Auto) 6.0 % (0.0-7.3) 04/27/20 04:50 Eos % (Auto) 2.9 % (0.0-4.3) 04/27/20 04:50 Baso % (Auto) 1.4 % (0.0-1.8) 04/27/20 04:50 Lymph # 1.3 K/mm3 (1.2-5.4) 04/27/20 04:50 [place] # 0.4 K/mm3 (0.0-0.8) 04/27/20 04:50 Eos # 0.2 K/mm3 (0.0-0.4) 04/27/20 04:50 Baso # 0.1 K/mm3 (0.0-0.1) 04/27/20 04:50 Seg Neutrophils % 68.0 % (40.0-70.0) 04/27/20 04:50 Seg Neutrophils # 4.1 K/mm3 (1.8-7.7) 04/27/20 04:50 PT 13.5 Sec. (12.2-14.9) 04/27/20 04:50 INR 1.05 (0.87-1.13) 04/27/20 04:50 APTT 27.5 Sec. (24.2-36.6) 04/26/20 19:43 D-Dimer 2177.69 ng/mlDDU (0-234) H 04/27/20 10:00 Sodium 145 mmol/L (137-145) 04/27/20 04:50 Potassium 3.8 mmol/L (3.6-5.0) 04/27/20 04:50 Chloride 109.3 mmol/L (98-107) H 04/27/20 04:50 Carbon Dioxide 23 mmol/L (22-30) 04/27/20 04:50 Anion Gap 17 mmol/L 04/27/20 04:50 BUN 12 mg/dL (9-20) 04/27/20 04:50 Creatinine 0.6 mg/dL (0.8-1.5) L 04/27/20 04:50 Estimated GFR > 60 ml/min 04/27/20 04:50 BUN/Creatinine Ratio 20 % 04/27/20 04:50 Glucose 110 mg/dL (75-100) H 04/27/20 10:00 Calcium 7.9 mg/dL (8.4-10.2) L 04/27/20 04:50 Magnesium 1.30 mg/dL (1.7-2.3) L 04/26/20 19:43 Ferritin 64.1 ng/mL (13.0-400.0) 04/27/20 10:00 Total Bilirubin 0.20 mg/dL (0.1-1.2) 04/26/20 19:43 AST 14 units/L (5-40) 04/26/20 19:43 ALT 10 units/L (7-56) 04/26/20 19:43 Alkaline Phosphatase 66 units/L (35-129) 04/26/20 19:43 Lactate Dehydrogenase 161 units/L (91-180) 04/27/20 10:00 Troponin T 0.018 ng/mL (0.00-0.029) 04/27/20 04:50 C-Reactive Protein 0.10 mg/dL (0.00-1.30) 04/27/20 10:00 Total Protein 6.4 g/dL (6.3-8.2) 04/26/20 19:43 Albumin 2.9 g/dL (3.9-5) L 04/26/20 19:43 Albumin/Globulin Ratio 0.8 % 04/26/20 19:43 Procalcitonin < 0.05 ng/mL (<0.15) 04/27/20 10:00 Urine Opiates Screen Presumptive negative 04/26/20 20:23 Urine Methadone Screen Presumptive negative 04/26/20 20:23 Ur Barbiturates Screen Presumptive negative 04/26/20 20:23 Ur Phencyclidine Scrn Presumptive negative 04/26/20 20:23 Ur Amphetamines Screen Presumptive negative 04/26/20 20:23 U Benzodiazepines Scrn Presumptive positive 04/26/20 20:23 Urine Cocaine Screen Presumptive negative 04/26/20 20:23 U Marijuana (THC) Screen Presumptive negative 04/26/20 20:23 Drugs of Abuse Note Disclamer 04/26/20 20:23 Plasma/Serum Alcohol 0.21 % (0-0.07) H 04/26/20 19:43 Microbiology: Microbiology 04/26/20 22:27 Peripheral/Venous Blood Culture - Preliminary NO GROWTH AFTER 24 HOURS 04/26/20 22:27 Peripheral/Venous Blood Culture - Preliminary NO GROWTH AFTER 24 HOURS Ruiz/IV: IV Catheter Type [Left Hand] Peripheral IV Active Medications - Current Medications Current Medications: Generic Name Dose Route Start Last Admin Trade Name Freq PRN Reason Stop Dose Admin Acetaminophen 650 mg 04/26/20 22:58 Tylenol PO Q4H PRN Pain MILD(1-3)/Fever >100.5/MAYES Aspirin 81 mg 04/28/20 10:00 04/28/20 09:10 Baby Aspirin PO 81 mg QDAY JESS Administration Atorvastatin Calcium 20 mg 04/27/20 22:00 04/27/20 22:14 Lipitor PO 20 mg QHS JSES Administration Azithromycin 500 mg 04/28/20 10:00 04/28/20 09:09 Zithromax PO 500 mg QDAY JESS Administration Sodium Chloride 1,000 mls @ 125 mls/hr 04/26/20 23:00 04/27/20 10:18 Nacl 0.9% 1000 Ml IV 125 mls/hr DIRECT JESS Administration Ceftriaxone Sodium 2 gm in 100 mls @ 200 mls/hr 04/27/20 10:00 04/27/20 10:15 Rocephin/Ns 2 Gm/100 Ml IV 200 mls/hr Q24HR JESS Administration Protocol Isosorbide Mononitrate 30 mg 04/27/20 12:00 04/28/20 09:09 Imdur PO 30 mg QDAY JESS Administration Lorazepam 2 mg 04/26/20 20:39 04/27/20 20:49 Ativan IV 2 mg Q1HR PRN Administration CIWA-Ar 8-15 Lorazepam 4 mg 04/26/20 20:39 Ativan IV Q1HR PRN CIWA-Ar 16-25 Magnesium Hydroxide 30 ml 04/26/20 22:58 Milk Of Magnesia PO Q4H PRN Constipation Metoprolol Succinate 25 mg 04/27/20 12:00 04/28/20 09:10 Metoprolol Xl PO 25 mg QDAY JESS Administration Ondansetron HCl 4 mg 04/26/20 22:58 Zofran IV Q8H PRN Nausea And Vomiting Rivaroxaban 20 mg 04/27/20 12:00 04/28/20 09:09 Xarelto PO 20 mg QDDIAB JESS Administration Sodium Chloride 10 ml 04/27/20 10:00 04/27/20 22:13 Sodium Chloride Flush Syringe 10 Ml IV 10 ml BID JESS Administration Nutrition/Malnutrition Assess - Dietary Evaluation Nutrition/Malnutrition Findings: Nutrition Notes Start: 04/27/20 08 :48 Freq: Status: Active Protocol: Document 04/27/20 08:48 LM (Rec: 04/27/20 08:54 LM [email or web address]) Nutrition Notes 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 Pt inappropriate for assessment at this time. Pt going through ETOH withdrawal per RN notes. Burn Absent Trauma Absent Current % PO Negligible Minimum of two criteria No physical signs of malnutrition #1 Nutrition Diagnosis Inadequate oral intake Etiology ETOH dependence As Evidenced by Signs and Symptoms Pt NPO Is patient on ventilator? No Is Patient Ambulatory and/or Out of Bed No REE-([facility]-confined to bed) [phone] Calculation Used for Recommendations [facility] Additional Notes Protein: 71-85g (1-1.2g/kg) Fluid: 1ml/kcal Nutrition Intervention Change Diet Order: Advance diet to cardiac when medically feasible Goal #1 diet advancement Anticipated Discharge Needs: cardiac Follow-Up By: 04/29/20 Additional Comments F/U for diet advancement/full assessment
[2020-04-28] MEDS: cefTRIAXone/NS 2 GM/100 ML 2 GM/100 ML BAG IV SCH (10:30)
--- NOTE | 2020-04-28 11:03 | Progress Note ---
Assessment and Plan 74-year-old male with known coronary arterial disease with EtOH abuse hyperlipidemia noncompliant with medication also has a history of DVT / pe 10/2019 to be on Xarelto statin and Imdur. Patient does need be compliant with medication. Discussed with patient's sister. Patient needs rehabilitation for chronic alcohol abuse chest pain with coronary disease will treat medically. Patient is more awake and alert patient needs to go to rehabilitation and has agreed continue current cardiac medications - Patient Problems (1) CAD (coronary artery disease) Current Visit: Yes Status: Chronic Qualifiers: Coronary Disease-Associated Artery/Lesion type: [place] artery [place] vs. transplanted heart: [place] heart Associated angina: with stable angina Qualified Code(s): I25.118 - Atherosclerotic heart disease of [place] coronary artery with other forms of angina pectoris (2) AMS (altered mental status) Current Visit: Yes Status: Acute Qualifiers: Altered mental status type: delirium Qualified Code(s): R41.0 - Disori entation, unspecified (3) Alcohol abuse Current Visit: Yes Status: Chronic (4) Alcohol withdrawal Current Visit: No Status: Acute Qualifiers: Complication of substance-induced condition: uncomplicated Qualified Code (s): F10.230 - Alcohol dependence with withdrawal, uncomplicated (5) HTN (hypertension) Current Visit: No Status: Chronic Qualifiers: Hypertension type: essential hypertension (6) RBBB Current Visit: No Status: Chronic (7) Chest pain Current Visit: No Status: Resolved Qualifiers: Chest pain type: precordial pain Qualified Code(s): R07.2 - Precordial pain Subjective Date of service: 04/28/20 Principal diagnosis: cp and ams Interval history: Patient is restrained in bed chest pain has resolved patient's mentation has improved Objective Vital Signs Temp Pulse Pulse Pulse Pulse Resp BP 04/28/20 04:40 98.0 F 18 159/80 04/28/20 04:10 84 04/27/20 23:31 98.0 F 20 151/73 04/27/20 19:59 95 H 04/27/20 19:53 98.2 F 86 19 04/27/20 17:00 84 04/27/20 14:43 76 76 76 19 04/27/20 13:47 76 151/72 04/27/20 13:46 76 151/72 04/27/20 12:00 86 04/27/20 11:30 97.5 F L 76 19 BP Pulse Ox 04/28/20 04:40 04/28/20 04:10 04/27/20 23:31 04/27/20 19:59 04/27/20 19:53 146/78 04/27/20 17:00 04/27/20 14:43 99 04/27/20 13:47 04/27/20 13:46 04/27/20 12:00 04/27/20 11:30 151/72 99 - Physical Examination General: No Apparent Distress HEENT: Positive: PERRL, EOMI Neck: Positive: neck supple Cardiac: Positive: Reg Rate and Rhythm Lungs: Positive: clear to auscultation Neuro: Positive: Other (More alert and awake) Abdomen: Positive: Soft Extremities: Present: normal. Absent: edema - Imaging and Cardiology Echo: report reviewed (02/2020 normal LV function no significant regurgitation was done at [facility]) Cardiac cath: report reviewed (02/2020 left main patent calcified vessel LAD is a medium caliber vessel with moderate to severe tortuosity proximal 20% diffusely mid 40% diagonal 1 ostial 90% small-caliber vessel circumflex proximal 50% bifurcates into a small to medium caliber OM1 OM 2 patent mild irregularities. RCA heavily calcified diffuse disease 30% proximally distally PDA PLV small- caliber vessel patent with normal LV function. This was done at [facility]) - Telemetry EKG Rhythm: Sinus Rhythm
[2020-04-28] MEDS: LORazepam 1 MG TAB PO PRN (21:26)
[2020-04-29] MEDS: LORazepam 1 MG TAB PO PRN ×2 (01:59→09:06)
[2020-04-29 04:56] LABS: Basophils # (Auto) 0.1 K/mm3 (0.0-0.1); Eosinophils # (Auto) 0.2 K/mm3 (0.0-0.4); Lymphocytes # (Auto) 0.9 K/mm3 (1.2-5.4); Lymphocytes % (Auto) 9.9 % (13.4-35.0); Mean Corpuscular Volume 89 fl (84-94); Monocytes # (Auto) 0.5 K/mm3 (0.0-0.8); Platelet Count 223 K/mm3 (140-440); Red Cell Distribution Width 18.4 % (13.2-15.2)
[2020-04-29 05:10] LABS: Hemoglobin 12.4 gm/dl (11.8-15.2); Mean Corpuscular HGB Conc 33 % (32-34)
[2020-04-29 05:17] LABS: BUN/Creatinine Ratio 10; Blood Urea Nitrogen 5 mg/dL (9-20); Calcium 8.8 mg/dL (8.4-10.2); Hemolysis Index 15
[2020-04-29 08:42] LABS: Hematocrit 36.5 % (35.5-45.6)
[2020-04-29] MEDS: RIVAROXABAN 20 MG TAB PO SCH (08:59)
[2020-04-29] MEDS: ASPIRIN 81 MG TAB CHEW PO SCH (09:00)
[2020-04-29] MEDS: AZITHROMYCIN 250 MG TAB PO SCH (09:00)
[2020-04-29] MEDS: cefTRIAXone/NS 2 GM/100 ML 2 GM/100 ML BAG IV SCH (09:00)
[2020-04-29] MEDS: METOPROLOL SUCCINATE XL 25 MG TAB PO SCH ×3 (09:01→11:25)
--- NOTE | 2020-04-29 09:49 | Progress Note ---
Assessment and Plan 74-year-old male with known coronary arterial disease with EtOH abuse hyperlipidemia noncompliant with medication also has a history of DVT / pe 10/2019 to be on Xarelto statin and Imdur. Patient does need be compliant with medication. Discussed with patient's sister. Patient needs rehabilitation for chronic alcohol abuse chest pain with coronary disease will treat medically. The patient has been seen in conjunction with Dr. Alford who agrees with the assessment and plan of care. - Patient Problems (1) CAD (coronary artery disease) Current Visit: Yes Status: Chronic Qualifiers: Coronary Disease-Associated Artery/Lesion type: [place] artery [place] vs. transplanted heart: [place] heart Associated angina: with stable angina Qualified Code(s): I25.118 - Atherosclerotic heart disease of [place] coronary artery with other forms of angina pectoris (2) AMS (altered mental status) Current Visit: Yes Status: Acute Qualifiers: Altered mental status type: delirium Qualified Code(s): R41.0 - Disorientation, unspecified (3) Alcohol abuse Current Visit: Yes Status: Chronic (4) Alcohol withdrawal Current Visit: No Status: Acute Qualifiers: Complication of substance-induced condition: uncomplicated Qualified Code(s): F10.230 - Alcohol dependence with withdrawal, uncomplicated (5) HTN (hypertension) Current Visit: No Status: Chronic Qualifiers: Hypertension type: essential hypertension (6) RBBB Current Visit: No Status: Chronic (7) Chest pain Current Visit: No Status: Resolved Qualifiers: Chest pain type: precordial pain Qualified Code(s): R07.2 - Precordial pain Subjective Date of service: 04/29/20 Principal diagnosis: cp and ams Objective Last Vital Signs Temp 98.3 F 04/29/20 07:44 Pulse 89 04/29/20 09:01 Resp 18 04/29/20 08:39 BP 158/79 04/29/20 09:01 Pulse Ox 93 04/29/20 07:44 - Physical Examination General: No Apparent Distress HEENT: Positive: PERRL, EOMI Neck: Positive: neck supple Cardiac: Positive: Reg Rate and Rhythm, S1/S2 Lungs: Positive: clear to auscultation Neuro: Positive: Other (More alert and awake) Abdomen: Positive: Soft Extremities: Present: normal. Absent: edema - Labs and Meds CBC 04/29/20 Range/Units 03:52 WBC 8.9 (4.5-11.0) K/mm3 RBC 4.10 (3.65-5.03) M/mm3 Hgb 12.4 (11.8-15.2) gm/dl Hct 36.5 D (35.5-45.6) % Plt Count 223 (140-440) K/mm3 Lymph # 0.9 L (1.2-5.4) K/mm3 [place] # 0.5 (0.0-0.8) K/mm3 Eos # 0.2 (0.0-0.4) K/mm3 Baso # 0.1 (0.0-0.1) K/mm3 Comprehensive Metabolic Panel 04/29/20 Range/Units 03:52 Sodium 141 (137-145) mmol/L Potassium 3.6 (3.6-5.0) mmol/L Chloride 103.3 (98-107) mmol/L Carbon Dioxide 22 (22-30) mmol/L BUN 5 L (9-20) mg/dL Creatinine 0.5 L (0.8-1.5) mg/dL Glucose 90 (75-100) mg/dL Calcium 8.8 (8.4-10.2) mg/dL - Imaging and Cardiology Echo: report reviewed (02/2020 normal LV function no significant regurgitation was done at [facility]) Cardiac cath: report reviewed (02/2020 left main patent calcified vessel LAD is a medium caliber vessel with moderate to severe tortuosity proximal 20% diffusely mid 40% diagonal 1 ostial 90% small-caliber vessel circumflex proximal 50% bifurcates into a small to medium caliber OM1 OM 2 patent mild irregularities. RCA heavily calcified diffuse disease 30% proximally distally PDA PLV small- caliber vessel patent with normal LV function. This was done at [facility])
--- NOTE | 2020-04-29 09:54 | Progress Note ---
Assessment and Plan Assessment and plan: Right lower lobe pneumonia. Continue IV antibiotics. Follow-up COVID testing. Toxic metabolic encephalopathy. Etiology secondary to EtOH withdrawal and pneumonia. Continue to treat underlying causes. EtOH abuse. Continue CIWA protocol. Hypertension. Continue antihypertensive medications. Chest pain. Cardiac catheterization performed at [facility] on 02/2020 revealed left main patent calcified vessel LAD is a medium caliber vessel with moderate to severe tortuosity proximal 20% diffusely mid 40% diagonal 1 ostial 90% small-caliber vessel circumflex proximal 50% bifurcates into a small to medium caliber OM1 OM 2 patent mild irregularities. RCA heavily calcified diffuse disease 30% proximally distally PDA PLV small-caliber vessel patent with normal LV function. Cardiology following. 04/28/2020. Patient remains confused requiring restraints. Continue CIWA protocol. Continue IV antibiotics and follow-up serial chest x-ray. Follow-up COVID 19 testing. D-dimer is elevated but other inflammatory markers including ferritin, LDH and CRP all within normal limits. Patient currently too agitated to undergo CTA of chest. Obtain lower extremity Dopplers. 04/29/2020. Patient remains confused requiring restraints. Continue CIWA protocol. Continue IV antibiotics and follow-up serial chest x-ray. COVID-19 negative. D-dimer is elevated but other inflammatory markers including ferritin, LDH and CRP all within normal limits. Patient currently too agitated to undergo CTA of chest. Obtain lower extremity Dopplers. History Interval history: No new issues overnight. Hospitalist Physical - Constitutional Vitals: Temp Pulse Resp BP Pulse Ox 98.3 F 89 18 158/79 93 04/29/20 07:44 04/29/20 09:01 04/29/20 08:39 04/29/20 09:01 04/29/20 07:44 General appearance: Present: other - EENT Eyes: Present: PERRL, EOM intact ENT: hearing intact, clear oral mucosa, dentition normal - Neck Neck: Present: supple, normal ROM - Respiratory Respiratory effort: normal Respiratory: bilateral: CTA - Cardiovascular Rhythm: regular Heart Sounds: Present: S1 & S2. Absent: gallop, rub - Extremities Extremities: no ischemia, No edema, Full ROM - Abdominal General gastrointestinal: soft, non-tender, non-distended, normal bowel sounds - Integumentary Integumentary: Present: clear, warm, dry - Neurologic Neurologic: CNII-XII intact, moves all extremities HEART Score - HEART Score EKG: Normal Age: > 65 Risk factors: 1-2 risk factors Troponin: Troponin T 0.018 ng/mL (0.00-0.029) 04/27/20 04:50 Troponin: < normal limit Results - Labs CBC & Chem 7: 04/29/20 03:52 04/29/20 03:52 Labs: Laboratory Last Values WBC 8.9 K/mm3 (4.5-11.0) 04/29/20 03:52 RBC 4.10 M/mm3 (3.65-5.03) 04/29/20 03:52 Hgb 12.4 gm/dl (11.8-15.2) 04/29/20 03:52 Hct 36.5 % (35.5-45.6) D 04/29/20 03:52 MCV 89 fl (84-94) 04/29/20 03:52 MCH 29 pg (28-32) 04/29/20 03:52 MCHC 33 % (32-34) 04/29/20 03:52 RDW 18.4 % (13.2-15.2) H 04/29/20 03:52 Plt Count 223 K/mm3 (140-440) 04/29/20 03:52 Lymph % (Auto) 9.9 % (13.4-35.0) L 04/29/20 03:52 [place] % (Auto) 6.0 % (0.0-7.3) 04/29/20 03:52 Eos % (Auto) 2.0 % (0.0-4.3) 04/29/20 03:52 Baso % (Auto) 1.0 % (0.0-1.8) 04/29/20 03:52 Lymph # 0.9 K/mm3 (1.2-5.4) L 04/29/20 03:52 [place] # 0.5 K/mm3 (0.0-0.8) 04/29/20 03:52 Eos # 0.2 K/mm3 (0.0-0.4) 04/29/20 03:52 Baso # 0.1 K/mm3 (0.0-0.1) 04/29/20 03:52 Seg Neutrophils % 81.1 % (40.0-70.0) H 04/29/20 03:52 Seg Neutrophils # 7.3 K/mm3 (1.8-7.7) 04/29/20 03:52 PT 13.5 Sec. (12.2-14.9) 04/27/20 04:50 INR 1.05 (0.87-1.13) 04/27/20 04:50 APTT 27.5 Sec. (24.2-36.6) 04/26/20 19:43 D-Dimer 2177.69 ng/mlDDU (0-234) H 04/27/20 10:00 Sodium 141 mmol/L (137-145) 04/29/20 03:52 Potassium 3.6 mmol/L (3.6-5.0) 04/29/20 03:52 Chloride 103.3 mmol/L (98-107) 04/29/20 03:52 Carbon Dioxide 22 mmol/L (22-30) 04/29/20 03:52 Anion Gap 19 mmol/L 04/29/20 03:52 BUN 5 mg/dL (9-20) L 04/29/20 03:52 Creatinine 0.5 mg/dL (0.8-1.5) L 04/29/20 03:52 Estimated GFR > 60 ml/min 04/29/20 03:52 BUN/Creatinine Ratio 10 % 04/29/20 03:52 Glucose 90 mg/dL (75-100) 04/29/20 03:52 Calcium 8.8 mg/dL (8.4-10.2) 04/29/20 03:52 Magnesium 1.30 mg/dL (1.7-2.3) L 04/26/20 19:43 Ferritin 64.1 ng/mL (13.0-400.0) 04/27/20 10:00 Total Bilirubin 0.20 mg/dL (0.1-1.2) 04/26/20 19:43 AST 14 units/L (5-40) 04/26/20 19:43 ALT 10 units/L (7-56) 04/26/20 19:43 Alkaline Phosphatase 66 units/L (35-129) 04/26/20 19:43 Lactate Dehydrogenase 161 units/L (91-180) 04/27/20 10:00 Troponin T 0.018 ng/mL (0.00-0.029) 04/27/20 04:50 C-Reactive Protein 0.10 mg/dL (0.00-1.30) 04/27/20 10:00 Total Protein 6.4 g/dL (6.3-8.2) 04/26/20 19:43 Albumin 2.9 g/dL (3.9-5) L 04/26/20 19:43 Albumin/Globulin Ratio 0.8 % 04/26/20 19:43 Procalcitonin < 0.05 ng/mL (<0.15) 04/27/20 10:00 Urine Opiates Screen Presumptive negative 04/26/20 20:23 Urine Methadone Screen Presumptive negative 04/26/20 20:23 Ur Barbiturates Screen Presumptive negative 04/26/20 20:23 Ur Phencyclidine Scrn Presumptive negative 04/26/20 20:23 Ur Amphetamines Screen Presumptive negative 04/26/20 20:23 U Benzodiazepines Scrn Presumptive positive 04/26/20 20:23 Urine Cocaine Screen Presumptive negative 04/26/20 20:23 U Marijuana (THC) Screen Presumptive negative 04/26/20 20:23 Drugs of Abuse Note Disclamer 04/26/20 20:23 Plasma/Serum Alcohol 0.21 % (0-0.07) H 04/26/20 19:43 Coronavirus (PCR) Negative (Negative) 04/28/20 Unknown Microbiology: Microbiology 04/26/20 22:27 Peripheral/Venous Blood Culture - Preliminary NO GROWTH AFTER 48 HOURS 04/26/20 22:27 Peripheral/Venous Blood Culture - Preliminary NO GROWTH AFTER 48 HOURS Ruiz/IV: Voiding Method Condom Catheter IV Catheter Type [Left Hand] INT / Saline Lock Active Medications - Current Medications Current Medications: Generic Name Dose Route Start Last Admin Trade Name Freq PRN Reason Stop Dose Admin Acetaminophen 650 mg 04/26/20 22:58 Tylenol PO Q4H PRN Pain MILD(1-3)/Fever >100.5/MAYES Aspirin 81 mg 04/28/20 10:00 04/29/20 09:00 Baby Aspirin PO 81 mg QDAY JESS Administration Atorvastatin Calcium 20 mg 04/27/20 22:00 04/28/20 21:26 Lipitor PO 20 mg QHS JESS Administration Azithromycin 500 mg 04/28/20 10:00 04/29/20 09:00 Zithromax PO 500 mg QDAY JESS Administration Sodium Chloride 1,000 mls @ 125 mls/hr 04/26/20 23:00 04/27/20 10:18 Nacl 0.9% 1000 Ml IV 125 mls/hr DIRECT JESS Administration Ceftriaxone Sodium 2 gm in 100 mls @ 200 mls/hr 04/27/20 10:00 04/29/20 09:00 Rocephin/Ns 2 Gm/100 Ml IV 200 mls/hr Q24HR JESS Administration Protocol Isosorbide Mononitrate 30 mg 04/27/20 12:00 04/29/20 09:00 Imdur PO 30 mg QDAY JESS Administration Lorazepam 2 mg 04/26/20 20:39 04/27/20 20:49 Ativan IV 2 mg Q1HR PRN Administration CIWA-Ar 8-15 Lorazepam 4 mg 04/26/20 20:39 Ativan IV Q1HR PRN CIWA-Ar 16-25 Lorazepam 2 mg 04/28/20 21:03 04/29/20 09:06 Ativan PO 2 mg Q4H PRN Administration Agitation Magnesium Hydroxide 30 ml 04/26/20 22:58 Milk Of Magnesia PO Q4H PRN Constipation Metoprolol Succinate 25 mg 04/27/20 12:00 04/29/20 09:01 Metoprolol Xl PO 25 mg QDAY JESS Administration Ondansetron HCl 4 mg 04/26/20 22:58 Zofran IV Q8H PRN Nausea And Vomiting Rivaroxaban 20 mg 04/27/20 12:00 04/29/20 08:59 Xarelto PO 20 mg QDDIAB JESS Administration Sodium Chloride 10 ml 04/27/20 10:00 04/29/20 09:02 Sodium Chloride Flush Syringe 10 Ml IV 10 ml BID JESS Administration Nutrition/Malnutrition Assess - Dietary Evaluation Nutrition/Malnutrition Findings: Nutrition Notes Start: 04/27/20 08:48 Freq: Status: Active Protocol: Document 04/27/20 08:48 LM (Rec: 04/27/20 08:54 LM [id number]) Nutrition Notes 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 Pt inappropriate for assessment at this time. Pt going through ETOH withdrawal per RN notes. Burn Absent Trauma Absent Current % PO Negligible Minimum of two criteria No physical signs of malnutrition #1 Nutrition Diagnosis Inadequate oral intake Etiology ETOH dependence As Evidenced by Signs and Symptoms Pt NPO Is patient on ventilator? No Is Patient Ambulatory and/or Out of Bed No REE-([facility]-confined to bed) [phone] Calculation Used for Recommendations [facility] Additional Notes Protein: 71-85g (1-1.2g/kg) Fluid: 1ml/kcal Nutrition Intervention Change Diet Order: Advance diet to cardiac when medically feasible Goal #1 diet advancement Anticipated Discharge Needs: cardiac Follow-Up By: 04/29/20 Additional Comments F/U for diet advancement/full assessment
[2020-04-29] MEDS: LORazepam 2 MG/ML VIAL IV PRN ×3 (11:12→21:57)
--- NOTE | 2020-04-29 17:20 | Vascular Lab Report ---
DUPLEX DOPPLER LOWER EXTREMITY VEINS, BILATERAL INDICATION / CLINICAL INFORMATION: elevated d-dimer. TECHNIQUE: Duplex doppler imaging was performed through the veins of both lower extremities using venous cristine liana and other maneuvers. COMPARISON: None available. FINDINGS: Right Common Femoral vein: Negative. Right Femoral vein: Negative. Right Popliteal vein: Negative. Right Calf veins: Negative. Left Common Femoral vein: Negative. Left Femoral vein: Negative. Left Popliteal vein: Negative. Left Calf veins: Negative. Additional findings: 2 cm right popliteal cyst IMPRESSION: 1. No sonographic evidence for DVT in either lower extremity. 2. Small right popliteal cyst Signer Name: Aba Gibson MD Signed: 04/29/2020 5:16 PM Workstation Name: [id number]
[2020-04-30] MEDS: SODIUM CHLORIDE 0.9% 1000 ML 1,000 ML IV SCH ×2 (07:55→18:13)
[2020-04-30] MEDS: RIVAROXABAN 20 MG TAB PO SCH (08:41)
[2020-04-30] MEDS: AZITHROMYCIN 250 MG TAB PO SCH (09:40)
[2020-04-30] MEDS: ASPIRIN 81 MG TAB CHEW PO SCH (09:40)
[2020-04-30] MEDS: METOPROLOL SUCCINATE XL 25 MG TAB PO SCH (09:41)
[2020-04-30] MEDS: cefTRIAXone/NS 2 GM/100 ML 2 GM/100 ML BAG IV SCH (09:43)
--- NOTE | 2020-04-30 10:34 | Progress Note ---
Assessment and Plan 74-year-old male with known coronary arterial disease with EtOH abuse, hyperlipidemia, noncompliant with medication also has a history of DVT / pe 10/2019. tele reviewed - in SR HR 90s with 1st deg AVB, 2.1 sec pause noted around 3AM while pt was asleep. Hold BB and cont to monitor on telemetry. Cont all other present cardiac management. The patient has been seen in conjunction with Dr. Alford who agrees with the assessment and plan of care. - Patient Problems (1) CAD (coronary artery disease) Current Visit: Yes Status: Chronic Qualifiers: Coronary Disease-Associated Artery/Lesion type: [place] artery [place] vs. transplanted heart: [place] heart Associated angina: with stable angina Qualified Code(s): I25.118 - Atherosclerotic heart disease of [place] coronary artery with other forms of angina pectoris (2) AMS (altered mental status) Current Visit: Yes Status: Acute Qualifiers: Altered mental status type: delirium Qualified Code(s): R41.0 - Disorientation, unspecified (3) Alcohol abuse Current Visit: Yes Status: Chronic (4) Alcohol withdrawal Current Visit: No Status: Acute Qualifiers: Complication of substance-induced condition: uncomplicated Qualified Code(s): F10.230 - Alcohol dependence with withdrawal, uncomplicated (5) HTN (hypertension) Current Visit: No Status: Chronic Qualifiers: Hypertension type: essential hypertension (6) RBBB Current Visit: No Status: Chronic (7) Chest pain Current Visit: No Status: Resolved Qualifiers: Chest pain type: precordial pain Qualified Code(s): R07.2 - Precordial pain Subjective Date of service: 04/30/20 Principal diagnosis: cp and ams Interval history: pt confused, restrained, no apparent distress. in SR HR 90s with 1st deg AVB on tele, 2.1 sec pause noted around 3AM while pt was asleep. Objective Last Vital Signs Temp 98.0 F 04/30/20 07:30 Pulse 72 04/30/20 09:42 Resp 18 04/30/20 07:30 BP 127/106 04/30/20 09:42 Pulse Ox 98 04/30/20 04:24 - Physical Examination General: No Apparent Distress, Other (confused, restrained) HEENT: Positive: PERRL, EOMI Neck: Positive: neck supple Cardiac: Positive: Reg Rate and Rhythm, S1/S2 Lungs: Positive: Decreased Breath Sounds Neuro: Positive: Other (More alert and awake) Abdomen: Positive: Soft Extremities: Present: normal. Absent: edema - Imaging and Cardiology Echo: report reviewed (02/2020 normal LV function no significant regurgitation was done at [facility]) Cardiac cath: report reviewed (02/2020 left main patent calcified vessel LAD is a medium caliber vessel with moderate to severe tortuosity proximal 20% diffusely mid 40% diagonal 1 ostial 90% small-caliber vessel circumflex proximal 50% bifurcates into a small to medium caliber OM1 OM 2 patent mild irregularities. RCA heavily calcified diffuse disease 30% proximally distally PDA PLV small- caliber vessel patent with normal LV function. This was done at [facility]) - Telemetry EKG Rhythm: Sinus Rhythm
[2020-04-30] MEDS: LORazepam 2 MG/ML VIAL IV PRN ×3 (11:10→22:40)
--- NOTE | 2020-04-30 17:19 | Progress Note ---
Assessment and Plan - Patient Problems (1) DVT prophylaxis Current Visit: Yes Status: Acute (2) Pneumonia Current Visit: Yes Status: Acute Qualifiers: Pneumonia type: due to unspecified organism Laterality: right Lung location: lower lobe of lung Qualified Code(s): J18.9 - Pneumonia, unspecified organism (3) Alcohol abuse Current Visit: Yes Status: Chronic (4) HTN (hypertension) Current Visit: No Status: Chronic Qualifiers: Hypertension type: essential hypertension (5) History of supraventricular tachycardia Current Visit: No Status: Chronic (6) Alcohol withdrawal Current Visit: No Status: Suspected (7) Chest pain Current Visit: No Status: Resolved Qualifiers: Chest pain type: precordial pain Qualified Code(s): R07.2 - Precordial pain Subjective Date of service: 04/30/20 Principal diagnosis: cp and ams Objective - Constitutional Vitals: Vital Signs - 12hr 04/30/20 04/30/20 04/30/20 07:30 09:34 09:41 Temperature 98.0 F Pulse Rate 99 H 72 Pulse Rate [ Apical] Pulse Rate [ Left Radial] Pulse Rate [ Right Radial] Respiratory 18 Rate Blood Pressure 128/76 127/106 127/106 O2 Sat by Pulse 95 Oximetry 04/30/20 04/30/20 04/30/20 09:42 10:00 11:10 Temperature Pulse Rate 72 102 H Pulse Rate [ 79 Apical] Pulse Rate [ 79 Left Radial] Pulse Rate [ 79 Right Radial] Respiratory 17 Rate Blood Pressure 127/106 140/70 O2 Sat by Pulse 94 Oximetry General appearance: Present: no acute distress, well-nourished - EENT Eyes: PERRL, EOM intact ENT: hearing intact, clear oral mucosa Ears: bilateral: normal - Neck Neck: supple, normal ROM - Respiratory Respiratory effort: normal Respiratory: bilateral: CTA - Breasts Breasts: normal - Cardiovascular Rhythm: regular Heart Sounds: Present: S1 & S2. Absent: gallop, rub Extremities: pulses intact, No edema, normal color, Full ROM - Gastrointestinal General gastrointestinal: Present: soft, non-tender, non-distended, normal bowel sounds - Genitourinary Male genitourinary: normal - Integumentary Integumentary: clear, warm, dry - Musculoskeletal Musculoskeletal: 1, strength equal bilaterally - Neurologic Neurologic: moves all extremities - Psychiatric Psychiatric: memory intact, appropriate mood/affect, intact judgment & insight - Labs CBC & Chem 7: 04/29/20 03:52 04/29/20 03:52 HEART Score - HEART Score EKG: Normal Age: > 65 Risk factors: 1-2 risk factors Troponin: Troponin T 0.018 ng/mL (0.00-0.029) 04/27/20 04:50 Troponin: < normal limit
[2020-05-01] MEDS: SODIUM CHLORIDE 0.9% 1000 ML 1,000 ML IV SCH ×3 (06:12→21:40)
[2020-05-01] MEDS: RIVAROXABAN 20 MG TAB PO SCH (08:45)
[2020-05-01] MEDS: cefTRIAXone/NS 2 GM/100 ML 2 GM/100 ML BAG IV SCH (09:11)
[2020-05-01] MEDS: ASPIRIN 81 MG TAB CHEW PO SCH (09:13)
--- NOTE | 2020-05-01 10:35 | Progress Note ---
Assessment and Plan tele reviewed - in SR HR 100s with 1st deg AVB on tele, bout of SVT noted overnight, no pauses. Resume low dose Toprol XL. Currently stable cardiac status. Nothing further to add from cardiac perspective. Will sign off. Discharge planning per case management. Recommend pt follow up in our office with Dr. Alford within 2 weeks of dischar ge ([phone]). The patient has been seen in conjunction with Dr. Alford who agrees with the assessment and plan of care. - Patient Problems (1) CAD (coronary artery disease) Current Visit: Yes Status: Chronic Qualifiers: Coronary Disease-Associated Artery/Lesion type: [place] artery [place] vs. transplanted heart: [place] heart Associated angina: with stable angina Qualified Code(s): I25.118 - Atherosclerotic heart disease of [place] coronary artery with other forms of angina pectoris (2) AMS (altered mental status) Current Visit: Yes Status: Acute Qualifiers: Altered mental status type: delirium Qualified Code(s): R41.0 - Disorientation, unspecified (3) Alcohol abuse Current Visit: Yes Status: Chronic (4) Alcohol withdrawal Current Visit: No Status: Acute Qualifiers: Complication of substance-induced condition: uncomplicated Qualified Code(s): F10.230 - Alcohol dependence with withdrawal, uncomplicated (5) HTN (hypertension) Current Visit: No Status: Chronic Qualifiers: Hypertension type: essential hypertension (6) RBBB Current Visit: No Status: Chronic (7) Chest pain Current Visit: No Status: Resolved Qualifiers: Chest pain type: precordial pain Qualified Code(s): R07.2 - Precordial pain Subjective Date of service: 05/01/20 Principal diagnosis: cp and ams Interval history: pt confused, restrained, no apparent distress. in SR HR 100s with 1st deg AVB on tele, bout of SVT noted overnight, no pauses. Objective Last Vital Signs Temp 97.9 F 05/01/20 06:58 Pulse 87 05/01/20 10:00 Resp 16 05/01/20 10:00 BP 168/83 05/01/20 09:13 Pulse Ox 98 05/01/20 10:00 - Physical Examination General: No Apparent Distress, Other (confused, restrained) HEENT: Positive: PERRL, EOMI Neck: Positive: neck supple Cardiac: Positive: Reg Rate and Rhythm, S1/S2 Lungs: Positive: Decreased Breath Sounds Neuro: Positive: Other (More alert and awake) Abdomen: Positive: Soft Extremities: Present: normal. Absent: edema - Imaging and Cardiology Echo: report reviewed (02/2020 normal LV function no significant regurgitation was done at [facility]) Cardiac cath: report reviewed (02/2020 left main patent calcified vessel LAD is a medium caliber vessel with moderate to severe tortuosity proximal 20% diffusely mid 40% diagonal 1 ostial 90% small-caliber vessel circumflex proximal 50% bifurcates into a small to medium caliber OM1 OM 2 patent mild irregularities. RCA heavily calcified diffuse disease 30% proximally distally PDA PLV small- caliber vessel patent with normal LV function. This was done at [facility])
[2020-05-01] MEDS: METOPROLOL SUCCINATE XL 25 MG TAB PO SCH (11:40)
--- NOTE | 2020-05-01 17:41 | Progress Note ---
Assessment and Plan - Patient Problems (1) DVT prophylaxis Current Visit: Yes Status: Acute (2) Pneumonia Current Visit: Yes Status: Acute Qualifiers: Pneumonia type: due to unspecified organism Laterality: right Lung location: lower lobe of lung Qualified Code(s): J18.9 - Pneumonia, unspecified organism (3) Alcohol abuse Current Visit: Yes Status: Chronic (4) HTN (hypertension) Current Visit: No Status: Chronic Qualifiers: Hypertension type: essential hypertension (5) History of supraventricular tachycardia Current Visit: No Status: Chronic (6) Alcohol withdrawal Current Visit: No Status: Suspected (7) Chest pain Current Visit: No Status: Resolved Qualifiers: Chest pain type: precordial pain Qualified Code(s): R07.2 - Precordial pain Subjective Date of service: 05/01/20 Principal diagnosis: cp and ams Objective - Constitutional Vitals: Vital Signs - 12hr 05/01/20 05/01/20 05/01/20 06:58 08:00 09:13 Temperature 97.9 F Pulse Rate 96 H 87 100 H Pulse Rate [ Apical] Pulse Rate [ Left Radial] Pulse Rate [ Right Radial] Respiratory 22 Rate Blood Pressure 168/83 Blood Pressure 136/65 [Left] O2 Sat by Pulse 96 Oximetry 05/01/20 05/01/20 10:00 11:40 Temperature Pulse Rate 112 H Pulse Rate [ 87 Apical] Pulse Rate [ 87 Left Radial] Pulse Rate [ 87 Right Radial] Respiratory 16 Rate Blood Pressure 141/71 Blood Pressure [Left] O2 Sat by Pulse 98 Oximetry - Labs CBC & Chem 7: 04/29/20 03:52 04/29/20 03:52 HEART Score - HEART Score EKG: Normal Age: > 65 Risk factors: 1-2 risk factors Troponin: Troponin T 0.018 ng/mL (0.00-0.029) 04/27/20 04:50 Troponin: < normal limit
[2020-05-01] MEDS: LORazepam 2 MG/ML VIAL IV PRN (20:23)
[2020-05-02 04:30] LABS: Basophils # (Auto) 0.1 K/mm3 (0.0-0.1); Basophils % (Auto) 0.9 % (0.0-1.8); Eosinophils # (Auto) 0.2 K/mm3 (0.0-0.4); Eosinophils % (Auto) 3.8 % (0.0-4.3); Hematocrit 32.4 % (35.5-45.6); Hemoglobin 10.8 gm/dl (11.8-15.2); Lymphocytes # (Auto) 1.1 K/mm3 (1.2-5.4); Lymphocytes % (Auto) 17.1 % (13.4-35.0); Mean Corpuscular HGB Conc 33 % (32-34); Mean Corpuscular Volume 88 fl (84-94); Monocytes % (Auto) 14.5 % (0.0-7.3); Platelet Count 135 K/mm3 (140-440); Red Blood Count 3.68 M/mm3 (3.65-5.03); Red Cell Distribution Width 18.7 % (13.2-15.2)
[2020-05-02 04:47] LABS: Alanine Aminotransferase 14 units/L (7-56); Albumin 2.7 g/dL (3.9-5); BUN/Creatinine Ratio 8; Blood Urea Nitrogen 3 mg/dL (9-20); Calcium 8.6 mg/dL (8.4-10.2); Hemolysis Index 14
[2020-05-02] MEDS: SODIUM CHLORIDE 0.9% 1000 ML 1,000 ML IV SCH (05:20)
[2020-05-02] MEDS: LORazepam 1 MG TAB PO PRN ×2 (05:20→11:45)
[2020-05-02] MEDS: RIVAROXABAN 20 MG TAB PO SCH (08:00)
[2020-05-02] MEDS: LORazepam 2 MG/ML VIAL IV PRN ×2 (08:29→14:10)
[2020-05-02 10:30] VITALS: BP 134/76
[2020-05-02] MEDS: ASPIRIN 81 MG TAB CHEW PO SCH (10:30)
[2020-05-02] MEDS: METOPROLOL SUCCINATE XL 25 MG TAB PO SCH (10:30)
== END 2020-05-02 17:18 | disposition home health service (06) | DRG 193 ==
LOC: ED 19:05 → 4A 22:24 → OBSVTOIN 22:24
PROVIDERS: ADMIT Internal Medicine Geriatric Medicine; ATTEND Internal Medicine
DX: J18.9 Pneumonia, unspecified organism (principal); G92 Toxic encephalopathy; F10.230 Alcohol dependence with withdrawal, uncomplicated; R09.1 Pleurisy; E83.42 Hypomagnesemia; I95.9 Hypotension, unspecified; Y90.9 Presence of alcohol in blood, level not specified; I25.118 Atherosclerotic heart disease of native coronary artery with other forms of angina pectoris; E11.9 Type 2 diabetes mellitus without complications; F17.210 Nicotine dependence, cigarettes, uncomplicated; Z96.659 Presence of unspecified artificial knee joint; I10 Essential (primary) hypertension; I45.10 Unspecified right bundle-branch block; Z03.818 Encounter for observation for suspected exposure to other biological agents ruled out; Z79.4 Long term (current) use of insulin
CPT/HCPCS: 36415; 71045; 80048; 80053; 80307; 80320; 82728; 82947; 83615; 83735; 84145; 84484; 85025; 85379; 85610; 85730; 86140; 87040; 90686; 93005; 93970; 96365; 96367; G0378; A9270-GY; G0480; J0456; J0696; J2060; J3411; J3475; J7030; J7050; U0003-CS